=== PATIENT | male | born 1985 | race Caucasian/White ===

== ENCOUNTER 2019-02-08 12:41 | Inpatient (IN) | payer MEDICAID ==
[~2019-02-08] VITALS: Ht 190.5 cm; Wt 75.0 kg
[2019-02-08 12:48] VITALS: Ht 190.5 cm; Wt 75.0 kg
--- NOTE | 2019-02-08 12:54 | NUR ---
AMBULATED TO RESTROOM TO GIVE URINE SAMPLE.
--- NOTE | 2019-02-08 13:03 | NUR ---
GIVEN WATER, UNABLE TO OBTAIN URINE SAMPLE.
--- NOTE | 2019-02-08 13:13 | NUR ---
PT UNABLE TO URINATE, TO LOBBY VIA WC WITH FAMILY, AWAITING ED BED. PT AWAKE AND ALERT BUT PER FAMILY NOT RESPONDING APPROPRIATELY. PT ANSWERS QUESTIONS BUT "APPEARS OUT OF IT" PER FAMILY. PT DENIES DRUG USE OR ETOH. NO FACIAL DROOP NOTED.
--- NOTE | 2019-02-08 13:35 | NUR ---
PT PRESENTS TO THE ED TODAY WITH C/C OF ALOC. PER FAMILY, PT HAS HAD A RECENT "COLD" X1 WEEK AND PT DID NOT SHOW UP TO WORK. COUSIN FOUND PT "ALTERED" AT HOME, AND DECIDED TO BRING HIM HERE FOR EVALUATION. PT IS AAOX4 ANSWERING ALL QUESTIONS APPROPRIATELY, HOWEVER IS SLOW TO ANSWER. PT'S ONLY COMPLAINT IS FRONTAL HEADACHE PAIN. NEURO INTACT, BILATERAL AND EQUAL SENIOR BIOSTATISTICIAN/GROUP LEADER NOTED, MOVES ALL EXTREMITIES APPROPRIATELY, AND ABLE TO AMBULATE WITH STEADY GAIT. PT IS AWAKE AND ALERT, RESP E/U, NAD NOTED. COUSIN AT BEDSIDE TO HELP PT TRANSLATE. NAD NOTED. AWAITING MSE.
--- NOTE | 2019-02-08 13:59 | NUR ---
IV BOLUS INITIATED PER ORDER, PT VERBALIZED UNDERSTANDING OF MEDICATION PRIOR TO ADMINISTRATION.
--- NOTE | 2019-02-08 14:07 | NUR ---
PT GIVEN URINAL, AWARE OF NEED FOR URINE SAMPLE.
[2019-02-08 14:15] LABS: BASOPHIL % 0.2 % (0-2); PLATELET COUNT 150 x10^3mcL (130-400); RED CELL DISTRIBUTION WIDTH 12.7 % (11.5-14.5)
[2019-02-08 14:26] LABS: CALCIUM 9.4 mg/dL (8.5-10.1); CARBON DIOXIDE 28.5 mmol/L (21-32); CHLORIDE SERUM 88 mmol/L (98-107); CREATININE SERUM 0.9 mg/dL (0.7-1.3); GFR1 > 60 mL/min; GLUCOSE SERUM 145 mg/dL (74-106); POTASSIUM SERUM 3.3 mmol/L (3.5-5.1); SODIUM SERUM 127 mmol/L (136-145)
[2019-02-08 14:31] LABS: ALBUMIN 3.7 g/dL (3.4-5.0); ALKALINE PHOSPHATASE 146 U/L (46-116); ALT/SGPT 90 U/L (16-63); AST/SGOT 16 U/L (15-37); BILIRUBIN TOTAL 0.8 mg/dL (0.20-1.00); HDL CHOLESTEROL 45 mg/dL (40-60)
--- NOTE | 2019-02-08 14:32 | NUR ---
PT INSISTED ON AMBULATING TO ED RESTROOM. ACCOMPANIED BY COUSIN. AMBULATED WITH STEADY GAIT.
[2019-02-08 14:33] LABS: CHOLESTEROL 81 mg/dL (<200); TOTAL PROTEIN, SERUM 8.3 g/dL (6.4-8.2)
--- NOTE | 2019-02-08 14:41 | NUR ---
PT RETURNED TO ED BED 1, REPORTS THAT HE IS UNABLE TO PROVIDE URINE SAMPLE. NO INCIDENT NOTED. PLACED BACK ON CM AND PULSE OXIMTERY FOR MONITORING.
--- NOTE | 2019-02-08 15:17 | NUR ---
DR TAVARES AT BEDSIDE TO SPEAK WITH PT REGARDING NEED FOR PROCEDURE. RN SIMONE CROW AT BEDSIDE TO HELP TRANSLATE. PT'S AUNT, RICHELLE, SIGN CONSENT FOR LUMBAR PUNCTURE AND CONSCIOUS MODERATE SEDATION. PT AGREED WITH PLAN OF CARE.
--- NOTE | 2019-02-08 15:49 | NUR ---
RT AT BEDSIDE TO HELP WITH MODRATE SEDATION PROTOCOL. DR TAVARES AT BED SIDE. PRIMARY NURSE SIMONE HUA ADMINISTERED THE KETAMINE PER DR TAVARES ORDERS. LP IN PROGRESS BY DR TAVARES, PT AWAKE RESP EVEN AND UNLABORED ON CM. MODERATE SEDATION IN PROGRESS, SEE NOTES.
--- NOTE | 2019-02-08 15:50 | NUR ---
MODERATE SEDATION AND LUMBAR PUNCTURE STARTED. PLEASE SEE MODERATE SEDATION RECORD SHEET.
--- NOTE | 2019-02-08 16:00 | NUR ---
PROCEDURE COMPLETED. PER DR TAVARES, HAVE PT LIE SUPINE IN [facility]. PT IS AWAKE AND ALERT, RESPONDING TO QUESTIONS APPROPRIATELY. WILL CONTINUE TO MONITOR.
--- NOTE | 2019-02-08 16:07 | NUR ---
ORAL TEMP 102.9. DR TAVARES MADE AWARE.
--- NOTE | 2019-02-08 16:20 | NUR ---
PT REMAINS IN SUPINE POSITION. PT IS ALERT AND ORIENTED X4, ABLE TO TRACK APPROPRIATELY AND FOLLOWS COMMANDS APPROPRIATELY. PT CONTINUES TO BE SLIGHTLY SLOW TO ANSWER WHEN HE FIRST PRESENTED TO THE ED.
--- NOTE | 2019-02-08 16:27 | NUR ---
PT REQUESTING TO USE URINAL. PER DR TAVARES, OKAY FOR PT TO ROLL OVER ON SIDE URINATE AND THEN RETURN TO SUPINE.
[2019-02-08 16:34] LABS: microscopic required? NO
[2019-02-08 16:43] LABS: UA SPECIFIC GRAVITY <=1.005 (1.005-1.035); urine erythrocyte NEGATIVE (NEGATIVE)
--- NOTE | 2019-02-08 16:44 | NUR ---
PT MEDICATED PER VERBAL ORDER FROM DR TAVARES WITH 1 GRAM TYLENOL PO. PT BRIEFLY SAT UP TO TAKE PO TYLENOL, AND LAID BACK DOWN. PT TOLERATED. AUNT AND COUSIN AT BEDSIDE WITH PT.
[2019-02-08 16:47] LABS: TOTAL PROTEIN CSF 96.9 mg/dL (15-45)
[2019-02-08 16:52] LABS: AMPHETAMINE QUAL UR NONE DETECTED (See below)
[2019-02-08 16:57] LABS: COLOR CSF COLORLESS
[2019-02-08 16:58] LABS: APPEARANCE CSF CLEAR
[2019-02-08 17:01] LABS: RBC CSF 12 /cumm (0); WBC CSF 93 /cumm (0-5)
[2019-02-08 17:02] LABS: APPEARANCE CSF CLEAR; COLOR CSF COLORLESS; RBC CSF 10 /cumm (0); WBC CSF 110 /cumm (0-5)
--- NOTE | 2019-02-08 17:10 | NUR ---
DR TAVARES AT BEDSIDE SPEAKING WITH PT'S FAMILY REGARDING PLAN OF CARE.
[2019-02-08 17:15] LABS: LYMPHOCYTE CSF 82 % (40-80); LYMPHOCYTE CSF 94 % (40-80); MONOCYTE CSF 6 %; MONOCYTE CSF 7 %
--- NOTE | 2019-02-08 17:22 | NUR ---
PER DR TAVARES, START ROCEPHIN 1ST, THEN VANCO, AND 3RD ACYCLOVIR.
--- NOTE | 2019-02-08 17:28 | NUR ---
IV ROCEPHIN INITIATED PER ORDER, PT AND FAMILY VERBALIZED UNDERSTANDING. DR TAVARES MADE AWARE OF NEW TEMP RECHECK. PER DR TAVARES, GIVE 600 MG IBUPROFEN.
--- NOTE | 2019-02-08 18:09 | NUR ---
VABNCOMYCIN BNOW INFUSING PER ORDERS VIA IV PUMP. PT IS A/AX4 SPEAKING TO MEDICAL STUDENT.PT ON CM
--- NOTE | 2019-02-08 18:21 | NUR ---
I EXPLAINED TO FAMIL MEMBERS REGARDING THE ISOLATION AND OFFERED MASKS HOWEVER I ALSO EXPLAINED LIMITED VISITING DUE TO DX OF MENIGITIS.
--- NOTE | 2019-02-08 18:22 | NUR ---
MEDICAL STUDENT LEFT ROOM I AM IN ROOM WITH PT ASSISTING WITH URINAL.
--- NOTE | 2019-02-08 18:24 | NUR ---
PT TOLERATING VANCOMYCIN WELL NO ADVERSE REACTIONS NOTED. SIDERAILS U0P FOR SAFETY
--- NOTE | 2019-02-08 19:11 | NUR ---
PT REPORT RECEIVED FROM SIMONE BUITRAGO TO ASSUME PT CARE. PT RESTING IN A POSITION OF COMFORT, AOX4, RESP EVEN AND UNLABORED, NO ACUTE DISTRESS NOTED. PT VITAL SIGNS STABLE AT THIS TIME. PT REMAINS ON FULL CM.
--- NOTE | 2019-02-08 19:40 | NUR ---
REPORT CALLED TO MINNA ALARCON TO ASSUME CARE FOR PT.
--- NOTE | 2019-02-08 20:10 | NUR ---
PT TRANSFERRED TO 250B BY [facility] BY PEARL RODRÍGUEZ. PT ACCEPTED BY MARGRET BUITRAGO TO ASSUME PT CARE. PT AOX4, RESP EVEN AND UNLABORED, NO ACUTE DISTRESS NOTED. PT TRANSFERRED FROM [facility] TO BED WITHOUT INCIDENT.
[2019-02-08 20:27] VITALS: BP 136/71
--- NOTE | 2019-02-08 20:38 | NUR ---
RECEIVED FROM ER, TRANSPORTED VIA [facility]. AWAKE, SLOW TO ANSWER, GENERALIZED WEAKNESS. ABLE TO STATE NAME, WHERE HE LIVES, . HAS DIFFICULTY STATING WHERE HE IS OR CURRENT YEAR. HOB ELEVATED 30 DEG. BREATHING EVEN AND UNLABORED ON ROOM AIR. LUNG SOUNDS CLEAR. DENIES HAVING HEADACHE AT THIS TIME. IVF OF NS FROM ER, REGULATED AT 20ML/HR AT THIS TIME. IV ACYCLOVIR INFUSING AT 110ML/HR, ABOUT 90ML, LEFT IN BAG FROM ER. ON DROPLET ISOLATION. ACCOMPANIED BY FEMALE VISITOR WHO PT IDENTIFIES HIS . WEARING MASK. ORIENTED PT TO ROOM ENVIRONMENT, INSTRUCTED ON USE OF CALL LIGHT TO CALL FOR ASSISTANCE, PLACED WITHIN EASY REACH. SITTER IN ROOM. ENDORSED TO NURSE OSWALD.
--- NOTE | 2019-02-08 22:09 | NUR ---
PT RESTING QUIETLY IN BED. DENIES PAIN OR ANY DISCOMFORT AT THIS TIME. STARTED ON IVF, NS AT 70ML/HR, INFUSING LT AC, SITE CLEAR. FAMILY MEMBERS AT THE BEDSIDE . WILL CONTINUE TO MONITOR.
--- NOTE | 2019-02-08 22:12 | NUR ---
K-RIDER INFUSING ORDERED. WILL CONTINUE TO MONITOR.
--- NOTE | 2019-02-09 02:01 | NUR ---
SEEN BY DR KOHLER. NEW ORDERS RECEIVED. NO COMPLAINTS NOTED AT THIS TIME.. FAMILY AT THE BEDSIDE. WILL CONTINUE TO MONITOR.
--- NOTE | 2019-02-09 03:31 | NUR ---
COMPLAINED OF SEVERE HEADACHE AND BODY PAIN, /, MEDICATED WITH TORADOL IV ORDERED. WILL CONTINUE TO MONITOR.
--- NOTE | 2019-02-09 03:33 | NUR ---
VITAL SIGNS CHECKED, TEMP. SHOWS 103.2, COOLING MEASURES APPLIED. TYLENOL 650MG PO GIVEN. WILL CONTINUE TO MONITOR.
--- NOTE | 2019-02-09 05:04 | NUR ---
TEMP. SHOWS 101.6 AT THIS TIME. WILL CONTINUE TO MONITOR.
[2019-02-09 05:14] VITALS: BP 122/86
--- NOTE | 2019-02-09 06:35 | NUR ---
NO COMPLAINTS NOTED AT THIS TIME. EYES CLOSED, APPEARS ASLEEP, EASILY AROUSABLE. RESP. EVEN AND UNLABORED. NO ACUTE DISTRESS NOTED. IVF INTACT AND INFUSING WELL, SITE CLEAR. SITTER AT THE BEDSIDE FOR SAFETY. WILL ENDORSE TO INCOMING NURSE.
[2019-02-09 06:43] LABS: BASOPHIL % 0.3 % (0-2); PLATELET COUNT 179 x10^3mcL (130-400); RED CELL DISTRIBUTION WIDTH 13.1 % (11.5-14.5)
[2019-02-09 06:53] LABS: CARBON DIOXIDE 26.4 mmol/L (21-32); CHLORIDE SERUM 95 mmol/L (98-107); CREATININE SERUM 0.9 mg/dL (0.7-1.3); GFR1 > 60 mL/min; GLUCOSE SERUM 138 mg/dL (74-106); PHOSPHOROUS 2.6 mg/dL (2.5-4.9); POTASSIUM SERUM 3.3 mmol/L (3.5-5.1); SODIUM SERUM 137 mmol/L (136-145)
--- NOTE | 2019-02-09 07:35 | NUR ---
ASSUMED CARE OF PATIENT. SEEN RESTING IN BED WITH EQUAL AND UNLABORED RESPIRATIONS. AT BEDSIDE. NO APPARENT DISTRESS NOTED. IV ON LAC PATENT, INCREASED NS TO 125ML/HR PER ORDERS. WILL CONTINUE TO MONITOR.
--- NOTE | 2019-02-09 08:10 | NUR ---
XRAY TO PHLEBOTOMY SERVICES TECHNICIAN PATIENT. NOTIFIED PATIENT. ONLY RESPONDING WITH "MANDE." NOTIFIED AT BEDSIDE.
--- NOTE | 2019-02-09 09:23 | NUR ---
NO CSF ORDERS. PAGED.
--- NOTE | 2019-02-09 09:38 | NUR ---
RECIEVED REPORT FROM NIGHT NURSE THAT REPEAT CSF WAS NEEDED TO BE DONE DUE TO INSUFFICEINT SAMPLE SIZE TO RULE OUT VIRAL MENINGITIS. LAB CALLING FOR NEW ORDERS FOR CSF. PAGED BUT NO RESPONSE. PER LAB, CSF TO BE HELD FOR NOW, HOWEVER, ORDERS FROM YESTERDAY STILL CURRENTLY PENDING. AWAITING CALL BACK FROM FOR CLARIFICATION.
--- NOTE | 2019-02-09 09:59 | NUR ---
PER LAB, ALL ORDERS PENDING. NO NOTES REGARDING NEED TO RECOLLECT SPECIMEN.
--- NOTE | 2019-02-09 10:01 | NUR ---
PAINT LABORATORY TECHNICIAN REPORTING ELEVATED TEMPERATURE. UNABLE TO GIVEN TYLENOL OR TRAMADOL PER EMAR. COOLING MEASURES APPLIED. PATIENT APPEARS AGITATED AND IS NON-COOPERATIVE WITH ADL CARE. PULLS AT GOWN AND REMOVES ICE PACKS.
[2019-02-09 10:05] VITALS: BP 134/74
--- NOTE | 2019-02-09 10:33 | NUR ---
BLADDER SCAN SHOWS >900ML URINE RETENTION. ORDER FOR QUILES CATHTER. TO DISCUSS WITH LAB OVER CSF.
--- NOTE | 2019-02-09 10:51 | NUR ---
QUILES CATHTER PLACED.
--- NOTE | 2019-02-09 11:18 | NUR ---
PRN TYLENOL PROVIDED FOR TEMP OF 103. COOLING MEASURES STILL IN PLACE. PRN TORADOL ALSO PROVIDED. PATIENT WAS ABLE TO TAKE A FEW BITES OF FOOD WITHOUT ANY ISSUE.
--- NOTE | 2019-02-09 11:35 | NUR ---
URINE SAMPLE SENT TO LAB
--- NOTE | 2019-02-09 12:35 | NUR ---
PATIENT CONTINUES TO GRAB AT PENIS AND SCRATCHING. PENIS AND QUILES CLEANED. QUILES PATENT AND DRAINING FREDI URINE. PATIENT ABLE TO EAT LUNCH WITH MAXIMUM ASSISTANCE.
--- NOTE | 2019-02-09 15:21 | NUR ---
PATIENT MORE RESPONSIVE. WAS ABLE TO ANSWER QUESTIONS. FAMILY REMAINS AT BEDSIDE. COMPLAINING OF 2/10 HEADACHE.
--- NOTE | 2019-02-09 15:53 | NUR ---
PATIENT CONTINUING TO C/O OF HEADACHE, DR.ALSAYED PLASCENCIAD. NO OTHER PRN MEDICATIONS AVAILABLE.
--- NOTE | 2019-02-09 16:42 | NUR ---
PRN MOTRIN PROVIDED FOR 6/10 HEADACHE.
--- NOTE | 2019-02-09 17:17 | NUR ---
PATIENT COMPLAINING OF "FEELING HOT." TEMPERATURE 100.0. CONTINUING WITH COOLING MEASURES. NO APPARENT DISTRESS IS NOTED.
[2019-02-09 17:40] VITALS: BP 122/72
--- NOTE | 2019-02-09 18:50 | NUR ---
PATIENT SEEN IN BED MORE ALERT THAN THIS MORNING. ABLE TO RESPOND TO QUESTIONS. FAMILY AT BEDSIDE. IV TO LAC PATENT AND INUFSING NS AT 125 ML/HR.CONTINUING WITH COOLING MEASURES. WILL ENDORSE CARE TO ONCOMING RN.
--- NOTE | 2019-02-09 19:47 | NUR ---
ISOL PREC POSTED, PT AWAKE VERBAL IN SHORT PHRASES, DOESNT FOLLOW REGULAR CONVERSATION, DENIES PAIN, NO DISTRESS LUNGS CTA, ON RA SATURATING 97%, AFEBRILE TEMP 98.9, IVF NS INFUSING @ 125CC/HR IV ACCESS @ LAC PATENT NON INFIL, MARKED WEAKNESS, EQUAL HANDGRIPS, ON ACYCLOVIR IV NO ADV REACTION, SHIFT ASSESSMENT DONE, FAMILY AT BEDSIDE FOR VISIT, CONT TO MONITOR.
--- NOTE | 2019-02-09 22:05 | NUR ---
PT C/O HEADACHE 03/06 PER ASSESSMENT, TYLENOL 650 MG PO GIVEN PER PRN ORDER, CONT TO MONITOR.
[2019-02-09 22:13] VITALS: BP 113/65
[2019-02-10 05:18] VITALS: BP 128/71
--- NOTE | 2019-02-10 06:31 | NUR ---
PT HAS A TEMP OF 102.7 PROVIDED COOLING MEASURES, ALSO C/O HEADACHE, IBUPROPEN 1 TAB PO GIVEN PER PRN ORDER, AT BEDSIDE, PT MORE ALERT AND CONVERSANT ABLE TO FOLLOW SOME COMMANDS, IVF INFUSING WELL, AM LABS DONE CONT TO MONITOR AND PROCEED TO CURRENT PLAN OF CARE.
[2019-02-10 07:04] LABS: BASOPHIL % 0.2 % (0-2); PLATELET COUNT 161 x10^3mcL (130-400); RED CELL DISTRIBUTION WIDTH 13.4 % (11.5-14.5)
[2019-02-10 07:22] LABS: CARBON DIOXIDE 26.4 mmol/L (21-32); CHLORIDE SERUM 102 mmol/L (98-107); CREATININE SERUM 0.8 mg/dL (0.7-1.3); GFR1 > 60 mL/min; GLUCOSE SERUM 111 mg/dL (74-106); PHOSPHOROUS 2.6 mg/dL (2.5-4.9); POTASSIUM SERUM 3.6 mmol/L (3.5-5.1); SODIUM SERUM 137 mmol/L (136-145)
--- NOTE | 2019-02-10 07:27 | NUR ---
ASSUMED CARE OF PATIENT. SEEN AWAKE AND ALERT THIS MORNING. ABLE TO RESPOND TO QUESTIONS, NODS UP AND DOWN WHEN ASKED IF FEELING OKAY. IV ON LAC PATENT AND INUFSING NS AT 125 ML/HR. QUILES PATENT, DRAINING FREDI URINE. FAMILY REMAINS AT BEDSIDE.
[2019-02-10 08:16] VITALS: BP 119/70
--- NOTE | 2019-02-10 08:45 | NUR ---
PATIENT SITTING UP IN BED. TOLERATING MEAL. ABLE TO RESPOND TO VERBAL QUESTIONS. FAMILY REMAINING AT BEDSIDE.
--- NOTE | 2019-02-10 10:08 | NUR ---
PATIENT RESTING IN ROOM WITH NO COMPLAINTS OF PAIN OR DISCOMFORT. ABLE TO VERBALIZE NEEDS AND MAKE NEEDS KNOWN. FAMILY AT BEDSIDE. PATIENT APPEARS TO BE MORE ALERT TODAY. NO NEW ISSUES.
--- NOTE | 2019-02-10 12:44 | NUR ---
TEMPERATURE OF 103. PRN TYLENOL PROVIDED. TEMPERATURE NOW 101.3. COOLING MEASURES CONTINUED.
--- NOTE | 2019-02-10 13:07 | NUR ---
PATIENT COMPLAINING OF 9/10 HEADCAHE. PRN MOTRIN PROVIDED.
--- NOTE | 2019-02-10 13:59 | NUR ---
QUILES CARE PROVIDED.
--- NOTE | 2019-02-10 14:29 | NUR ---
TEMPERATURE 99-100. REMIANING ON COOLING MEASURES. ADMITS TO MILD HEADACHE OF 4/10 QUALITY. NO APPARENT DISTRESS NOTED. FAMILY REMAINS AT BEDSIDE.
--- NOTE | 2019-02-10 15:32 | NUR ---
PATIENT REPORTS "FEELING BETTER." TEMPERATURE REMAINING AT 99. NO APPARENT DISTRESS NOTED. COOLING MEASURES STILL IN PLACE. FAMILY REMAINS AT BEDSIDE.
--- NOTE | 2019-02-10 16:43 | NUR ---
DR. BOATENG NOTIFIED PATIENT AND OF CURRENT PROGNOSIS.
[2019-02-10 17:22] VITALS: BP 113/63
--- NOTE | 2019-02-10 18:09 | NUR ---
QUILES CATHTER NOW DRAINING CLEAR YELLOW URINE FROM PREVIOUS FREDI URINE.
--- NOTE | 2019-02-10 18:54 | NUR ---
PATIENT SEEN RESTING IN ROOM WITH NO COMPLAINTS OF PAIN OR DISCOMFORT. NO APPARENT DISTRESS NOTED. IV PATENT AND CONTINUING TO INFUSING NS AT 125ML/HR. QUILES INTACT AND PATENT, DRAINING YELLOW URINE. WILL ENDORSE CARE TO ONCOMING RN.
--- NOTE | 2019-02-10 19:32 | NUR ---
RECEIVED PT IN BED AAO X4 VERBALIZED NEEDS, NOT IN DISTRESS DENIES PAIN OR DISCOMFORTS AFEBRILE TEMP 98.9, IVF NS INFUSING @ 125CC/HR, IV ACCESS PATENT NON INFIL, SCD'S FOR DVT PROPHYLAXIS, F/C DRAINING FREELY YELLOW COLORED URINE OUTPUT, SHIFT ASSESSMENT DONE, CALL LIGHT AT REACH, RECEIVED LAB REPORT PT HAVING YEAST ORGANISM IN THE CSF, PAGED DR MEHTA, AWAITING FOR CALL BACK.
--- NOTE | 2019-02-10 19:55 | NUR ---
DR MEHTA CALLED BACK INFORMED RE FINAL RESULT FOR CSF CULTURE IN WHICH PT HAS YEAST GROWTH, AWAITING FOR ORDERS.
[2019-02-10 21:00] VITALS: BP 137/79
--- NOTE | 2019-02-10 22:12 | NUR ---
TYLENOL 650 MG PO GIVEN FOR TEMP 102.7, COOLING MEASURES PROVIDED, CONT TO MONITOR.
--- NOTE | 2019-02-10 22:30 | NUR ---
TEMP RECHECKED 99.2, PT ASLEEP IVF INFUSING WELL, CHECKED AT INTERVALS.
--- NOTE | 2019-02-10 23:34 | NUR ---
FOLLOWED UP PHARMACIST RE AMPHOTERICIN AND FLUCYTOSINE MEDICATION STILL NOT VERIFIED, PER PHARMACIST DAY PHARMACY WILL VERIFY DOSING IN AM, DR MEHTA MADE AWARE, WILL ENDORSE TO AM NURSE.
[2019-02-11] VITALS (10 sets, daily range): BP systolic 111–142; BP diastolic 60–92
--- NOTE | 2019-02-11 06:08 | NUR ---
PT C/O LONDONO 12/04 PER ASSESSMENT, ALSO HAS ELEVATED TEMP OF 100.6, COOLING MEASURES PROVIDED, MOTRIN 600 MG PO GIVEN PER PRN ORDER, ENCOURAGED FLUIDS INTAKE, AT BEDSIDE STAYED FOR THE NIGHT ACTIVELY PARTICIPATING CARE, PT MORE AWAKE AND COHERENT, VERBALIZED NEEDS, WILL ENDORSE TO INCOMING SHIFT FOR F/U CARE.
[2019-02-11 06:50] LABS: CALCIUM 7.4 mg/dL (8.5-10.1); CARBON DIOXIDE 25.7 mmol/L (21-32); CHLORIDE SERUM 100 mmol/L (98-107); CREATININE SERUM 0.9 mg/dL (0.7-1.3); GFR1 > 60 mL/min; GLUCOSE SERUM 109 mg/dL (74-106); MAGNESIUM 1.8 mg/dL (1.8-2.4); PHOSPHOROUS 2.7 mg/dL (2.5-4.9); POTASSIUM SERUM 3.3 mmol/L (3.5-5.1); SODIUM SERUM 136 mmol/L (136-145)
--- NOTE | 2019-02-11 07:21 | NUR ---
ASSUMED CARE OF PATIENT. SEEN RESTING THIS MORNING WITH EQUAL AND UNLABORED RESPIRATIONS. NO APPARENT DISTRESS NOTED. IV TO LAC PATENT AND INFUSING NS AT 125ML/HR. QUILES INTACT AND PATENT, DRAINING YELLOW URINE. AT BEDSIDE. WILL CONTINUE TO MONITOR.
[2019-02-11 07:34] LABS: BASOPHIL % 0.2 % (0-2); PLATELET COUNT 159 x10^3mcL (130-400); RED CELL DISTRIBUTION WIDTH 13.1 % (11.5-14.5)
--- NOTE | 2019-02-11 08:49 | NUR ---
AND PATIENT REQUESTING THAT PATIENT INFORMATION BE KEPT CONFIDENTIAL FROM FAMILY MEMBERS.
--- NOTE | 2019-02-11 09:04 | NUR ---
PATIENT RESTING IN BED WITH NO COMPLAINTS OF PAIN OR DISCOMFORT. NO APPARENT DISTRESS NOTED. AT BEDSIDE. PER PHARMACY, RECOMMENDED DOSE FOR AMPHOTERICIN B AT MINIMUM IS 50MG.
--- NOTE | 2019-02-11 10:57 | NUR ---
PER PHARMACY, FLUCYTOSINE NON-FORMULARY, AMPHOTERICIN B ORDER CLARIFIED.
--- NOTE | 2019-02-11 13:00 | NUR ---
BLADDER TRAINING INITIATED
--- NOTE | 2019-02-11 13:24 | NUR ---
PATIENT EDUCATED ON AMPHOTERICIN B. PRN TYLNOL PROVIDED FOR L[place]ONO AND TEMP OF 99.
--- NOTE | 2019-02-11 13:30 | NUR ---
PER PHARMACY, VITAL SIGNS TO BE OBTAINED EVERY 30 MINUTES FOR THE NEXT 3-4 HOURS TO ASSESS FOR REACTIONS. SEE DOCUMENTATION.
--- NOTE | 2019-02-11 14:02 | NUR ---
PAGED FOR LOW POTASSIUM AND POSSIBLE COVERAGE, AWAITING ORDERS.
--- NOTE | 2019-02-11 14:14 | NUR ---
PATIENT REQUESTING TO AMBULATE. PATIENT FIRST MOVED TO CHAIR TO ASSESS AMBULATION. PATIENT BECAME LIGHT HEADED AND UNSTEADY WHEN STANDING UP FROM BED. REQUIRED A FEW SECONDS TO BECOME STEADY, WAS ABLE TO TRANSFER TO CHAIR WITH 1 PERSON ASSIST.
--- NOTE | 2019-02-11 14:38 | NUR ---
PER Paulino ORTIZ NOT TO BE COVERED DUE TO AMPHOTERICIN B. PATIENT COMPLAINING OF FEELING HOT, TYLENOL ALREADY ADMINISTERED. COOLING MEASURES APPLIED.
--- NOTE | 2019-02-11 17:20 | NUR ---
NO ADVERSE EFFECT FROM TEST AMPHOTERICIN B, VITAL SIGNS WERE AT BASELINE. INITIAL DOSE STARTED.
--- NOTE | 2019-02-11 18:09 | NUR ---
CONTINUING WITH BLADDER TRAINING, PATIENT UNABLE TO SENSE THE URGE TO URINATE.
--- NOTE | 2019-02-11 18:57 | NUR ---
PATIENT RESTING IN CHAIR WITH TEMP OF 103. COOLING MEASURES KEPT IN PLACE. NO COMPLAINTS OF PAIN OR DISCOMFORT. NO APAPRENT DISTRESS NOTED. CONTINUING WITH AMPHOTERICIN B AT THIS TIME. WILL ENDORSE CARE TO ONCOMING RN.
--- NOTE | 2019-02-11 19:10 | NUR ---
RECEIVED PT FROM DAY SHIFT RN. PT IS ALERT AND ORIENTED X4 CURRENTLY RESTING IN A CHAIR. FAMILY AT THE BEDSIDE. PT DENIES SOB OR CHEST PAIN ON ROOM AIR. BREATHING IS EVEN AND UNLABORED. PT IS MOSTLY SLOV[place] SPEAKING. ABLE TO MAKE NEEDS KNOWN. PT DENIES DIZZINESS, HEADACHE, MEMORY INTACT AT THIS TIME. LAC IV NOTED RUNNING NS @125ML/HR. PT TOLERATING WELL. QUILES CATHETER IN PLACE. WILL CONTINUE WITH BLADDER TRAINING. PT STATES THAT HE HAS THE URGE TO PEE. DARK YELLOW URINE. PT TOLERATING WELL. SAFETY MEASURES ARE IN PLACE. BED IS IN THE LOWEST POSITION. CALL LIGHT IS WITHIN REACH. WILL CONTINUE TO MONITOR PT.
--- NOTE | 2019-02-11 20:50 | NUR ---
PT TEMP: 102.4 WILL ADMINISTER TYLENOL PER ORDER. ICE PACKS ADMINISTERED. WILL REASSESS.
--- NOTE | 2019-02-12 00:27 | NUR ---
SISTER AT BEDSIDE. PT RESTING IN BED EMPTIED 2000 ML FROM QUILES. PT BREATHING EVEN AND UNLABORED. WILL CONTINUE TO MONITOR. PT DOES NOT APPEAR TO BE IN ANY DISTRESS AT THIS TIME.
[2019-02-12 05:38] VITALS: BP 115/63
--- NOTE | 2019-02-12 07:10 | NUR ---
RECEIVED PT FROM DAYO RN. PT LAYING IN BED RESTING WITH BOTH EYES CLOSED. NO S/S OF ACUTE DISTRESS. NO SOB ON ROOM AIR. NO S/S OF PAIN. CALM/COOPERATIVE. SISTER AT BEDSIDE. DROPLET PRECAUTIONS IN PLACE. BED IN LOW POSITION. CALL LIGHT WITHIN REACH. WILL CONTINUE TO MONITOR.
--- NOTE | 2019-02-12 08:29 | NUR ---
TEMP 100.4F, TYLENOL GIVEN. COOLING MEASURES IN PLACE. DENIES CHILLS. NO S/S OF ACUTE DISTRESS. NO COMPLAINT OF PAIN. NO N/V. PT CALM/COOPERATIVE. BED IN LOW POSITION. CALL LIGHT WITHIN REACH. DROPLET PREC IN PLACE. WILL CONTINUE TO MONITOR.
[2019-02-12 08:40] VITALS: BP 108/62
[2019-02-12 09:06] LABS: BASOPHIL % 0.3 % (0-2); PLATELET COUNT 172 x10^3mcL (130-400); RED CELL DISTRIBUTION WIDTH 12.8 % (11.5-14.5)
[2019-02-12 09:13] LABS: ALKALINE PHOSPHATASE 97 U/L (46-116); ALT/SGPT 51 U/L (16-63); AST/SGOT 18 U/L (15-37); BILIRUBIN TOTAL 0.51 mg/dL (0.20-1.00); CALCIUM 7.6 mg/dL (8.5-10.1); CARBON DIOXIDE 26.9 mmol/L (21-32); CHLORIDE SERUM 102 mmol/L (98-107); CREATININE SERUM 0.8 mg/dL (0.7-1.3); GFR1 > 60 mL/min; GLUCOSE SERUM 121 mg/dL (74-106); SODIUM SERUM 138 mmol/L (136-145); TOTAL PROTEIN, SERUM 6.4 g/dL (6.4-8.2)
[2019-02-12 09:28] LABS: ALBUMIN 2.7 g/dL (3.4-5.0)
--- NOTE | 2019-02-12 11:55 | NUR ---
QUILES REMOVED PER PHYSICIAN ORDER. OUTPUT 650CC YELLOW/CLEAR. TOLERATED WELL. INSTRUCTED TO USE URINAL TO VOID. VERBALIZED UNDERSTANDING. AA/OX4. NO S/S OF ACUTE DISTRESS. NO SOB ON ROOM AIR. NO PAIN. WILL CONTINUE TO MONITOR.
--- NOTE | 2019-02-12 12:24 | NUR ---
PT TAKEN FOR PROCEDURE. AA/OX4. NO S/S OF ACUTE DISTRESS. IV WNL TO LAC, SALINE LOCKED. NO SOB ON ROOM AIR. DENIES PAIN. CALM/COOPERATIVE. AT BEDSIDE.
--- NOTE | 2019-02-12 13:23 | NUR ---
PT BACK FROM PROCEDURE. VS STABLE BP 121/72, HR 78, O2 SAT 98% ON ROOM AIR, RR EVEN/UNLABORED. RR 14, TEMP 97.4F. DENIES CHILLS. NO [place]ONO. NO DIZZINESS. NO SOB. DENIES PAIN. CALM/COOPERATIVE. IV WNL, NO REDNESS, NO SWELLING, NO INFILTRATION. AT BEDSIDE. PT AA/OX4. BED IN LOW POSITION. CALL LIGHT WITHIN REACH. WILL CONTINUE TO MONITOR.
[2019-02-12 13:30] VITALS: BP 127/72
[2019-02-12 16:50] VITALS: BP 125/77
--- NOTE | 2019-02-12 18:21 | NUR ---
PT LAYING IN BED. AA/OX4. DENIES PAIN. NO SOB ON ROOM AIR. NO N/V. NO FEVER AT THIS TIME. DENIES CHILLS. NO CHEST PAIN. IV WNL TO LAC, IV FLUIDS FLOWING. SEE EMAR. IV SITE WNL. VISITOR AT BEDSIDE. PT CALM/COOPERATIVE. BED IN LOW POSITION. CALL LIGHT WITHIN REACH. WILL ENDORSE TO ONCOMING SHIFT.
--- NOTE | 2019-02-12 19:24 | NUR ---
TEMP 101.7 ORAL. TYLENOL GIVEN. COOLING MEASURES IN PLACE. CHILLS NOTED. WILL ENDORSE TO DAYO BUITRAGO.
--- NOTE | 2019-02-12 20:00 | NUR ---
RECEIVED PT IN BED. RESTING QUIETLY IN BED, WITH FAMILY MEMBERS AT THE BEDSIDE. ALERT AND ORIENTED. ABLE TO VERBALIZE NEEDS. RESP. EVEN AND UNLABORED. LUNG SOUNDS CLEAR BILAT. ON ROOM AIR, NO ACUTE DISTRESS NOTED.TEMP. RECHECK SHOWS 101.2, COOLING MEASURES APPLIED. DENIES HEADACHE/DIZZINESS.DENIES ANY DISCOMFORT AT THIS TIME.IVF, NS AT 125ML/HR, INTACT AND INFUSING VIA LAC, SITE CLEAR. VOIDING FREELY VIA URINAL. CALL LIGHT WITHIN REACH. WILL CONTINUE TO MONITOR.
[2019-02-12 20:31] VITALS: BP 116/67
--- NOTE | 2019-02-12 22:06 | NUR ---
COMPLAINED OF GEN. BODY PAIN, 5/10, TEMP. RECHECK ALSO SHOWS 101.0, MOTRIN PO GIVEN ORDERED. WILL CONTINUE TO MONITOR.
--- NOTE | 2019-02-12 23:58 | NUR ---
AMBULATED IN THE HALLWAY WITH , ROBB. WELL. RESTING QUIETLY IN BED AT THIS TIME. AT THE BEDSIDE. DENIES ANY PAIN OR DISCOMFORT. TEMP. SHOWS 99.2. WILL CONTINUE TO MONITOR.
--- NOTE | 2019-02-13 03:00 | NUR ---
RESTING QUIETLY IN BED, WITH EYES CLOSED, APPEARS ASLEEP, EASILY AROUSABLE. RESP. EVEN AND UNLABORED.ON ROOM AIR, NO ACUTE DISTRESS NOTED. IVF INTACT AND INFUSING WELL, SITE CLEAR. WILL CONTINUE TO MONITOR.
[2019-02-13 05:21] VITALS: BP 103/56
--- NOTE | 2019-02-13 06:28 | NUR ---
SLEPT WELL. AT THE BEDSIDE. NO COMPLAINTS NOTED AT THIS TIME. AFEBRILE, TEMP. 98.3 AT THIS TIME.VSS. DENIES PAIN OR ANY DISCOMFORT AT THIS TIME. IVF INTACT AND INFUSING WELL, SITE CLEAR. KEPT COMFORTABLE. VOIDS FREELY. CALL LIGHT WITHIN REACH. WILL CONTINUE TO MONITOR.
[2019-02-13 07:00] LABS: CALCIUM 7.6 mg/dL (8.5-10.1); CARBON DIOXIDE 24.6 mmol/L (21-32); CHLORIDE SERUM 103 mmol/L (98-107); CREATININE SERUM 0.9 mg/dL (0.7-1.3); GFR1 > 60 mL/min; GLUCOSE SERUM 107 mg/dL (74-106); SODIUM SERUM 140 mmol/L (136-145)
--- NOTE | 2019-02-13 07:15 | NUR ---
RECEIVED PT FROM SLUICE TENDER NURSE. PT IN BED SLEEPING, AROUSABLE, RESP E/U ON RA. NO SIGNS OF ACUTE DISTRESS NOTED. IV TO LAC W/ NO SIGNS OF INFILTRATION. IVF INFUSING WELL. BED IN LOWEST POSITION AND CALL LIGHT WITHIN REACH. WILL CONTINUE TO MONITOR.
[2019-02-13 07:46] LABS: RED CELL DISTRIBUTION WIDTH 13.1 % (11.5-14.5)
[2019-02-13 07:47] LABS: BASOPHIL % 0 % (0-2); PLATELET COUNT 122 x10^3mcL (130-400)
[2019-02-13 09:07] VITALS: BP 110/64
--- NOTE | 2019-02-13 12:30 | NUR ---
PT RESTING INBED, AOX4, RESP E/U ON RA. C/O OF FEELING VERY WARM, VS ASSESSED, TEMP: 100.6. MEDICATED ORDERED PER EMAR, COOLING MEASURES IMPLEMTENTED. PT DENIES HEADACHE, PAIN OR N/V. BED IN LOWEST POSITION AND CALL LIGHT WITHIN REACH. WILL CONTINUE TO MONITOR.
--- NOTE | 2019-02-13 17:30 | NUR ---
PT RESTING IN BED, AOX4, RESP E/U ON RA. DENIES HEADACHE, PAIN OR N/V, TEMP: 99.8. NO ACUTE DISTRESS NOTED. IV TO LFA W/ NO SIGNS OF INFILTRATION, IVF INFUSING WELL. BED IN LOWEST POSTION AND CALL LIGHT WITHIN REACH. WILL ENDORSE TO ONCOMING NURSE.
[2019-02-13 17:42] VITALS: BP 117/69
--- NOTE | 2019-02-13 19:57 | NUR ---
RECEIVED PT IN BED, RESTING QUIETLY, WITH FAMILY MEMBER AT THE BEDSIDE. ALERT AND ORIENTED. ABLE TO VERBALIZE NEEDS. RESP. EVEN AND UNLABORED. LUNG SOUNDS CLEAR BILAT. ON ROOM AIR, NO ACUTE DISTRESS NOTED. AFEBRILE AND VITAL SIGNS STABLE.DENIES CP OR ANY DISCOMFORT AT THIS TIME. IVF, NS AT 125ML/HR, INTACT AND INFUSING VIA LFA, SITE CLEAR.NO COMPLAINTS NOTED AT THIS TIME. VOIDING FREELY. CALL LIGHT WITHIN REACH. WILL CONTINUE TO MONITOR.
[2019-02-13 20:00] VITALS: BP 122/71
--- NOTE | 2019-02-13 20:45 | NUR ---
COMPLAINED OF BODY PAIN, 5/10, ALSO TEMP. READS 101.8, MOTRIN PO GIVEN. COOLING MEASURES ALSO APPLIED. WILL CONTINUE TO MONITOR.
--- NOTE | 2019-02-13 21:45 | NUR ---
PT RESTING IN BED, STATES PAIN RELIEF. PAIN LEVEL AT 1/10. CALL LIGHT WITHIN REACH. WILL CONTINUE TO MONITOR.
--- NOTE | 2019-02-13 22:21 | NUR ---
TEMP. RECHECK SHOWS 98.6 AT THIS TIME. WILL CONTINUE TO MONITOR.
--- NOTE | 2019-02-14 02:15 | NUR ---
EYES CLOSED, APPEARS ASLEEP, EASILY AROUSABLE. RESP. EVEN AND UNLABORED. ON ROOM AIR, NO ACUTE DISTRESS NOTED. CALL LIGHT WITHIN REACH. WILL CONTINUE TO MONITOR.
[2019-02-14 05:07] LABS: RAPID PLASMA REAGIN Non Reactive (Non Reactive)
--- NOTE | 2019-02-14 05:56 | NUR ---
NO COMPLAINTS NOTED AT THIS TIME. DUE MEDS GIVEN ORDERED. ROBB. WELL. IVF INTACT AND INFUSING WELL, SITE CLEAR.RESP. EVEN AND UNLABORED. NO ACUTE DISTRESS NOTED. AFEBRILE AND VITAL SIGNS STABLE. DENIES PAIN OR ANY DISCOMFORT AT THIS TIME. WILL CONTINUE TO MONITOR.
[2019-02-14 06:22] LABS: BASOPHIL % 0.1 % (0-2); RED CELL DISTRIBUTION WIDTH 12.9 % (11.5-14.5)
[2019-02-14 06:35] VITALS: BP 102/56
[2019-02-14 06:37] LABS: CALCIUM 7.9 mg/dL (8.5-10.1); CARBON DIOXIDE 27.6 mmol/L (21-32); CHLORIDE SERUM 103 mmol/L (98-107); CREATININE SERUM 1.1 mg/dL (0.7-1.3); GFR1 > 60 mL/min; GLUCOSE SERUM 112 mg/dL (74-106); PHOSPHOROUS 3.7 mg/dL (2.5-4.9); POTASSIUM SERUM 3.5 mmol/L (3.5-5.1); SODIUM SERUM 139 mmol/L (136-145)
[2019-02-14 06:58] LABS: PLATELET COUNT 73 x10^3mcL (130-400)
--- NOTE | 2019-02-14 07:35 | NUR ---
PATIENT AWAKE AND ORIENTED TO PERSON, PLACE AND TIME. PATIENT DENIES SHORTNESS OF BREATH, NAUSEA/VOMITING OR PAIN AT THIS TIME. IVF NS AT 125CC/HR VIA IV SITE TO LFA. CALL LIGHT WITHIN REACH. SIDE RAILS UP X2. BED IS AT LOWEST POSITION. THE AND SISTER ARE AT BEDSIDE.
[2019-02-14 08:21] VITALS: BP 110/63
--- NOTE | 2019-02-14 10:25 | NUR ---
DR. KNIGHT AND THE TEAM WERE MAKING ROUND TO SEE THE PATIENT. CARE PLAN WAS EXPLAINED TO THE PATIENT AND THE FAMILY IN [place] BY DR. KNIGHT. CONCERNS WERE ADDRESSED; PATIENT AND FAMILY VERBALIZED UNDERSTANDING.
[2019-02-14 17:05] VITALS: BP 125/69
--- NOTE | 2019-02-14 18:49 | NUR ---
PATIENT IS RESTING IN BED WITHOUT DISTRESS NOTED AT THIS TIME. THE FAMILY INCLUDING HIS AND SISTER IS AT BEDSIDE WITH THE PATIENT.
--- NOTE | 2019-02-14 18:55 | NUR ---
PATIENT HAS TEMP 102.9 ORALLY; MOTRIN 600 MG PO MEDICATED TO THE PATIENT. WILL ENDORSE TO [facility] NURSE TO RECHECK TEMP AFTER 1HR OF TAKING MOTRIN.
--- NOTE | 2019-02-14 19:30 | NUR ---
RECIEVED PATIENT AT START OF SHIFT A/O X4. OCCITAN SPEAKING ONLY, AT BEDSIDE TO TRANSLATE. MED-SURG. NO COMPLAINT OF PAIN, BREATHS REGULAR AND EVEN ON RA. IV TO LFA IS INFUSING. ON PATIENT'S UPPER FOREARM ABOVE THE IV SITE THERE IS A SMALL SCAB WITH ERYTHEMA, WARMTH, AND PAIN NOTED AROUND IT. THE ENTIRE LEFT ARM HAS NON-PITTING EDEMA AND BLANCHABLE REDNESS.IV TO LFA WAS D/CD. NEW IV STARTED ON RFA 20G. PICTURE IN CHART OF SCAB AND ERYTHEMA NOTED ON LEFT ARM. WILL NOTIFY DR. MEHTA. BED LOCKED AND IN LOWEST POSITION. CALL LIGHT AND BEDSIDE TABLE WITHIN REACH.
--- NOTE | 2019-02-14 20:00 | NUR ---
PATIENTS TEMP IS 98.7. HIS FEVER HAS BROKEN.
[2019-02-14 20:30] VITALS: BP 104/66
--- NOTE | 2019-02-14 21:34 | NUR ---
PATIENT GIVEN TYLENOL PO PER EMAR FOR REPORT OF 5/10 PAIN TO LEFT FOREARM NEAR HIS SMALL SCAB.
--- NOTE | 2019-02-14 23:01 | NUR ---
DR. CRESPO RETURNED PAGE AND IS NOW AWARE OF PATIENT'S SMALL SCAB AND ERYTHEMA ON LEFT ARM AT THIS TIME.
--- NOTE | 2019-02-15 02:00 | NUR ---
PATIENT'S EYES ARE CLOSED, BREATHS EVEN, NO SIGNS OF DISTRESS. CALL LIGHT AND BEDSDIE TABLE WITHIN REACH. IV INFUSING WITHOUT COMPLICATION.
[2019-02-15 05:54] VITALS: BP 108/64
--- NOTE | 2019-02-15 06:00 | NUR ---
PATIENT SLEPT WELL THROUGH THE NIGHT. PATIENT IS AWAKE, A/O X4 FOLLOWING COMMANDS. NO SOB ON RA. DENIES PAIN. IV INFUSING TO RFA WITHOUT ERYTHEMA OR INFILTRATION. BED LOCKED AND IN LOWEST POSIITON. CALL LIGHT WITHIN REACH. WILL ENDORSE CARE TO DAYSHIFT NURSE.
[2019-02-15 06:29] LABS: BASOPHIL % 0.2 % (0-2); RED CELL DISTRIBUTION WIDTH 12.9 % (11.5-14.5)
[2019-02-15 06:41] LABS: CALCIUM 7.5 mg/dL (8.5-10.1); CARBON DIOXIDE 24.3 mmol/L (21-32); CHLORIDE SERUM 101 mmol/L (98-107); CREATININE SERUM 1.4 mg/dL (0.7-1.3); GFR1 > 60 mL/min; GLUCOSE SERUM 95 mg/dL (74-106); MAGNESIUM 1.6 mg/dL (1.8-2.4); SODIUM SERUM 137 mmol/L (136-145)
[2019-02-15 07:19] LABS: PLATELET COUNT 48 x10^3mcL (130-400)
--- NOTE | 2019-02-15 07:45 | NUR ---
AAO TIMES 4. NO TELE. STANDARD PRECAUTIONS. LUNGS CTA. NO SOB. O2 SAT ON RA 99%. BS'S ACTIVE TIMES 4. URINATES WITHOUT DIFFICULTY USING URINAL, URINE CLEAR YELLOW. PERIPHERAL PULSES PALPABLE. NO EDEMA. LAC AREA WITH DRIED SMALL SCAB, SMALL AMOUNT OF PINK SURRROUNDING WOUND, NO DRAINAGE, AND PER PHOTO AND HEAD LOADER THE ERYTHEMA NOTED SURRDOUNGING THIS WOUND HAS DIMINISHED. DENIES DISCOMFORT.
[2019-02-15 08:05] LABS: POTASSIUM SERUM 2.9 mmol/L (3.5-5.1)
[2019-02-15 08:09] VITALS: BP 113/71
--- NOTE | 2019-02-15 08:15 | NUR ---
SCD'S ON BLE.
--- NOTE | 2019-02-15 09:42 | NUR ---
DR ENCISO WAS CALLED AT 0831 TO ALERT HIM TO THIS PATIENT'S SERUM POTASSIUM LEVEL OF 2.9. HE ORDERED KCL 40 MEQ, IT WAS JUST NOW GIVEN. PATIENT TOLERATED AND SWALLOWED WITHOUT DIFFICULTY.
--- NOTE | 2019-02-15 10:47 | NUR ---
I NOTIFIED DR WETZEL THAT HIS SERUM MAGNESIUM IS 1.6, SHE STATED SHE WILL ORDER MEDICATION REPLACMENT.
[2019-02-15 17:00] VITALS: BP 128/70
--- NOTE | 2019-02-15 17:54 | NUR ---
AAO TIMES 4. DENIES DISCOMFORT. NO SOB. STANDARD PRECAUTIONS. MED SURG PATIENT. COOPERATIVE. IV SITE RIGHT WRIST CDI. NO SOB. FAMILY PRESENT, SUPPORTIVE. WATCHING TV AND SLEEPING AT TIMES.
--- NOTE | 2019-02-15 19:30 | NUR ---
RECIEVED PATIENT AT START OF SHIFT A/O X4, FAROESE SPEAKING. AT BEDSIDE TO TRANSLATE, PATIENT DENIES PAIN. NO SOB ON RA. MED-SURG. LEFT ARM IS NO LONGER ERYTHEMIC, EDEMETOUS, OR TENDER LIKE IT WAS LAST NIGHT 02/14. IV ON RFA IS INFUSING WITHOUT ERYTHEMA OR INFILTRATION. BED LOCKED AND IN LOWEST POSIITON. CALL LIGHT AND BEDSIDE TABLE WITHIN REACH.
--- NOTE | 2019-02-15 21:05 | NUR ---
TYLENOL GIVEN PER EMAR FOR TEMPERATURE OF 100.5.
--- NOTE | 2019-02-15 22:05 | NUR ---
PATIENTS TEMPERATURE REDUCED TO 98.7.
[2019-02-15 22:08] VITALS: BP 122/70
--- NOTE | 2019-02-16 06:13 | NUR ---
PATIENT SLEP WELL THROUGH THE NIGHT. NO COMPLAINT OF PAIN THIS MORNING. NO SOB ON RA. IV INFUSING WELL TO RFA. CALL LIGHT WITHIN REACH. WILL NEDORSE CARE TO DAYSHIFT NURSE.
[2019-02-16 06:39] VITALS: BP 107/67
[2019-02-16 07:16] LABS: CALCIUM 7.8 mg/dL (8.5-10.1); CARBON DIOXIDE 25.4 mmol/L (21-32); CHLORIDE SERUM 103 mmol/L (98-107); CREATININE SERUM 1.4 mg/dL (0.7-1.3); GFR1 > 60 mL/min; GLUCOSE SERUM 111 mg/dL (74-106); MAGNESIUM 1.6 mg/dL (1.8-2.4); PHOSPHOROUS 4.4 mg/dL (2.5-4.9); SODIUM SERUM 139 mmol/L (136-145)
[2019-02-16 07:17] LABS: BASOPHIL % 0.5 % (0-2); RED CELL DISTRIBUTION WIDTH 12.7 % (11.5-14.5)
[2019-02-16 07:18] LABS: POTASSIUM SERUM 2.9 mmol/L (3.5-5.1)
--- NOTE | 2019-02-16 07:30 | NUR ---
RECEIVED PT RESTING IN BED. NO ACUTE DISTRESS. RESTING WITH EYES CLOSED BUT EASILY AROUSABLE. BREATHING EVEN AND UNLABORED ON RA. IVF INFUSING TO RFA, NO REDNESS OR SWELLING NOTED. HOB ELEVATED. GEN WEAKNESS. AT BEDSIDE. BED IN LOW POSITION, CALL LIGHT WITHIN REACH. WILL CONTINUE TO MONITOR.
[2019-02-16 08:09] VITALS: BP 111/69
[2019-02-16 09:18] LABS: PLATELET COUNT 48 x10^3mcL (130-400)
--- NOTE | 2019-02-16 11:21 | NUR ---
PT SITTING UP IN BED. NO ACUTE DISTRESS. RESP EVEN AND UNLABORED ON RA. C/O GEN WEAKNESS. IVF INFUSING, NO REDNESS OR SWELLING NOTED. AT BEDSIDE. DIETITIAN AT BEDSIDE TO EVALUATE PT. CALL LIGHT WITHIN REACH. WILL CONTINUE TO MONITOR.
--- NOTE | 2019-02-16 14:13 | NUR ---
Initial Nutrition Assessment: 250/B TREY FAUST IA HR Dx: ALOC, Encephalitis PMHx: Non significant PSHx: not documented Labs: K 2.9L, BG 111H, CREAT 1.4H, MG 1.6L, HGB 10.2L Meds: Zofran, Tylenol, NS Diet: Regular PO Intake: (02/15) breakfast, dinner 85%, lunch 80%, (02/14) dinner 85%, lunch 80% Ht: 190.5 cm (75") Wt: 74.9 kg (165#) BMI: 20.7 kg/m2 Bed scale: 165.9# IBW: 196# (89 kg) %IBW: 84 UBW: 175# Age: 33/M Food Allergies: NKFA Skin: intact Enrique: 19 Edema: none GI: Last BM: 02/13 Per H&P, Pt is a 33 years old male with no significant past medical history admitted for headache for the past 3 weeks then became confused. RDN Visit (02/16): Patient was alert and oriented and cousin was by the bedside who helped with Guamanian translation. Patient said that he ate most of his breakfast this morning and admits to having lost 10# x 2 months. 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 FNS received consult for "malnutrition" on 02/14. Problem with: N/V/D/C: no Problems with: Chewing/Swallowing: none Current appetite: poor Recent wt change: 10# x 2 months %wt change: 5 Vitamin/Supplement use: none Special diet at home: regular Physical activity: none Nutrition education given: Emphasized on eating well- cooked foods and to avoid raw foods issac to high bacterial load. PO was encouraged. Food-drug interactions: none Education given: n/a Estimated Nutritional Needs Based on current body weight 75 kg Energy: 3590-6404 kcal/d (25-30 kcal/kg) Protein: 90-105 g/d (1.2-1.4 g/kg) - HIV Fluid: 5440-5339 ml/d (1 ml/kcal) or per doctor Nutrition Diagnosis 1. Unintentional weight loss related to HIV as evidenced by self- reported weight loss of 10# x 2 months. Intervention 1. Recommend continuing regular diet. 2. Recommend Ensure High protein BID. Discussed recommendations with Dr. Herbert. Monitor/Evaluate Goal: PO intake at least 75% of estimated needs Monitor: PO intake, Labs, GI function F/U in 3-5 days as moderate risk
--- NOTE | 2019-02-16 14:14 | NUR ---
1. Recommend continuing regular diet. 2. Recommend Ensure High protein BID. Discussed recommendations with Dr. Herbert.
[2019-02-16 16:10] VITALS: BP 98/53
--- NOTE | 2019-02-16 19:20 | NUR ---
RECEIVED PT FROM PREVIOUS SHIFT NURSE. PT AOX4, DENIES L[place]ON[place]/DIZZINESS. MED SURG PT, DENIES CP/PRESSURE. DENIES SOB/DIFFICULTY BREATHING, ON RA. IV TO RFA, INTACT AND PATENT. BED IN LOWEST POSITION. CALL LIGHT WITHIN REACH. WILL CONTINUE TO MONITOR.
--- NOTE | 2019-02-16 19:36 | NUR ---
PT RESTING IN BED. NO ACUTE DISTRESS. AAOX4. RESP EVEN AND UNLABORED ON RA. NO C/O PAIN. IVF TO RFA, NO REDNESS OR SWELLING NOTED. PT C/O ERYTHEMA TO LFA, ICE PACK GIVEN REQUESTED. GEN WEAKNESS. VISITOR AT BEDSIDE. BED IN LOW POSITION, CALL LIGHT WITHIN REACH. WILL ENDORSE TO ONCOMING SHIFT.
[2019-02-16 19:43] VITALS: BP 105/71
--- NOTE | 2019-02-17 00:30 | NUR ---
PT RESTING IN BED. RR EVEN AND UNLABORED. IN NO ACUTE DISTRESS. CALL LIGHT WITHIN REACH. WILL CONTINUE TO MONITOR.
[2019-02-17 04:45] VITALS: BP 114/74
--- NOTE | 2019-02-17 06:15 | NUR ---
PT CONTINUES TO REST, IN NO ACUTE DISTRESS. DENIED ANY PAIN OR DISCOMFORT THROUGHOUT THE NIGHT. BED IN LOWEST POSITION. CALL LIGHT WITHIN REACH. WILL CONTINUE TO MONITOR.
[2019-02-17 06:38] LABS: BASOPHIL % 0.3 % (0-2); RED CELL DISTRIBUTION WIDTH 12.9 % (11.5-14.5)
[2019-02-17 06:58] LABS: CALCIUM 7.8 mg/dL (8.5-10.1); CARBON DIOXIDE 25.8 mmol/L (21-32); CHLORIDE SERUM 103 mmol/L (98-107); CREATININE SERUM 1.4 mg/dL (0.7-1.3); GFR1 > 60 mL/min; GLUCOSE SERUM 103 mg/dL (74-106); MAGNESIUM 1.5 mg/dL (1.8-2.4); PHOSPHOROUS 3.8 mg/dL (2.5-4.9); POTASSIUM SERUM 3.1 mmol/L (3.5-5.1); SODIUM SERUM 140 mmol/L (136-145)
[2019-02-17 07:09] LABS: PLATELET COUNT 49 x10^3mcL (130-400)
--- NOTE | 2019-02-17 07:35 | NUR ---
PT RESTING IN BED. NO ACUTE DISTRESS. AAOX4. BREATHING EVEN AND UNLABORED ON RA. IVF INFUSING, NO REDNESS OR SWELLING TO IV SITE. HOB SLIGHTLY ELEVATED. GEN WEAKNESS. BED IN LOW POSITION, CALL LIGHT WITHIN REACH. WILL CONTINUE TO MONITOR.
[2019-02-17 08:24] VITALS: BP 116/66
--- NOTE | 2019-02-17 11:21 | NUR ---
SPOKE WITH DR. WILSON REGARDING PT'S K+ 3.1, MAG 1.5, AND PLATELET 49. NO NEW ORDERS AT THIS TIME. WILL CONTINUE TO MONITOR.
--- NOTE | 2019-02-17 12:38 | NUR ---
PT RESTING IN BED. GETTING BED BATH DONE, ASSISTED BY FAMILY MEMBERS. NO ACUTE DISTRESS. RESP EVEN AND UNLABORED ON RA. IVF INFUSING, NO REDNESS OR SWELLING NOTED. FALL PRECAUTIONS. CALL LIGHT WITHIN REACH. WILL CONTINUE TO MONITOR.
[2019-02-17 16:53] VITALS: BP 113/66
--- NOTE | 2019-02-17 18:27 | NUR ---
PT IN NO ACUTE DISTRESS. AAOX4. EATING DINNER AT THIS TIME. RESP EVEN AND UNLABORED ON RA. IVF INFUSING, NO REDNESS OR SWELLING NOTED. HOB ELEVATED. FALL PRECAUTIONS. BED IN LOW POSITION, CALL LIGHT WITHIN REACH. WILL ENDORSE TO ONCOMING SHIFT.
--- NOTE | 2019-02-17 19:05 | NUR ---
RECEIVED PT FROM PREVIOUS SHIFT NURSE. PT AOX4, DENIES [place]O/DIZZINESS. MED SURG PT, DENIES CP/PRESSURE. DENIES SOB/DIFFICULTY BREATHING AT THIS TIME. IV TO RFA, INTACT AND PATENT. BED IN LOWEST POSITION. CALL LIGHT WITHIN REACH. WILL CONTINUE TO MONITOR.
[2019-02-17 19:17] VITALS: BP 113/59
--- NOTE | 2019-02-17 22:13 | NUR ---
PT C/O PAIN UPON URINATION AND PAIN ON PENIS. WARTS NOTED ON PENIS. DR. CRESPO NOTIFIED.
--- NOTE | 2019-02-17 22:16 | NUR ---
PT C/O PAIN UPON URINATION AND PAIN ON PENIS. LESIONS NOTED ON PENIS. DR. CRESPO NOTIFIED.
--- NOTE | 2019-02-18 03:07 | NUR ---
PT RESTING IN BED. RR EVEN AND UNLABORED. IN NO ACUTE DISTRESS. CALL LIGHT WITHIN REACH. BED IN LOWEST POSITION. WILL CONTINUE TO MONITOR.
[2019-02-18 05:24] VITALS: BP 108/69
[2019-02-18 06:33] LABS: BASOPHIL % 0.4 % (0-2)
[2019-02-18 07:06] LABS: CARBON DIOXIDE 26.8 mmol/L (21-32); CHLORIDE SERUM 104 mmol/L (98-107); CREATININE SERUM 1.3 mg/dL (0.7-1.3); GFR1 > 60 mL/min; GLUCOSE SERUM 98 mg/dL (74-106); MAGNESIUM 1.5 mg/dL (1.8-2.4); PHOSPHOROUS 3.8 mg/dL (2.5-4.9); POTASSIUM SERUM 3.4 mmol/L (3.5-5.1); SODIUM SERUM 140 mmol/L (136-145)
--- NOTE | 2019-02-18 07:21 | NUR ---
REPORT TAKEN FROM HOSPITAL MORTICIAN NURSE AT THE BEDSIDE, PT AWAKE AND ALERT AT THIS TIME. PT'S AT THE BEDSIDE WELL. WILL CONTINUE TO MONITOR.
[2019-02-18 08:09] VITALS: BP 109/68
[2019-02-18 08:25] LABS: PLATELET COUNT 47 x10^3mcL (130-400)
[2019-02-18 12:02] VITALS: BP 108/64
[2019-02-18 16:16] VITALS: BP 104/69
--- NOTE | 2019-02-18 18:26 | NUR ---
PT TOLERATED TREATMENT WELL DURING THE SHIFT, MET WITH DOCTORS DUEING ROUNDS. FAMILY PRESENT AT THE BEDSIDE DURING SHIFT, HOWEVER MEDICAL HX AND CONDITION ONLY DISCUSSED WITH PT'S . PT ABLE TO TOLERATED ENSURE, BUT POOR APPETITE CONTINUES, PROVIDER ADDED MEGACE TO EMAR. PT ABULATED TWICE DURING THE SHIFT, APPEARED STEADY ON HIS FEET. PT DENIED PAIN OR ADDITIONAL NEEDS AT THIS TIME, WILL REPORT TO SCHOOL HEALTH AIDE NURSE TIM SUTTON.
--- NOTE | 2019-02-18 19:11 | NUR ---
REPORT GIVEN TO GREASE MAKER HEAD NURSE, CARE ENDORSED
--- NOTE | 2019-02-18 20:00 | NUR ---
RECEIVED PT IN BED, ALERT AND ORIENTED. DENIES HEADACHE/DIZZINESS. RESP. EVEN AND UNLABORED. ON ROOM AIR, NO ACUTE DISTRESS NOTED. IVF, NS AT 125ML/HR, INTACT AND INFUSING VIA RFA, SITE CLEAR. FAMILY AT THE BEDSIDE, VERY SUPPORTIVE. NO COMPLAINTS NOTED AT THIS TIME.WITH GEN. WEAKNESS, NEEDS ASSIST. WITH AMBULATION. CALL LIGHT WITHIN REACH. WILL CONTINUE TO MONITOR.
[2019-02-18 20:39] VITALS: BP 109/68
--- NOTE | 2019-02-19 01:36 | NUR ---
NO COMPLAINTS NOTED AT THIS TIME. RESTING QUIETLY IN BED, WITH EYES CLOSED, APPEARS ASLEEP, EASILY AROUSABLE.RESP. EVEN AND UNLABORED. NO ACUTE DISTRESS NOTED. WILL CONTINUE TO MONITOR.
[2019-02-19 05:56] VITALS: BP 105/62
--- NOTE | 2019-02-19 05:57 | NUR ---
AFEBRILE AND VITAL SIGNS STABLE. DENIES PAIN OR ANY DISCOMFORT AT THIS TIME. DUE MEDS GIVEN ORDERED, ROBB. WELL. IVF INTACT AND INFUSING WELL, SITE CLEAR . VOIDING FREELY. KEPT COMFORTABLE. NO COMPLAINTS NOTED AT THIS TIME. RESP. EVEN AND UNLABORED. NO ACUTE DISTRESS NOTED. WILL CONTINUE TO MONITOR.
[2019-02-19 07:40] VITALS: BP 97/55
--- NOTE | 2019-02-19 08:06 | NUR ---
AAO TIMES 4. MED SURG PATIENT. LUNGS CTA. NO SOB. O2 SAT ON RA 98%. BS'S ACTIVE TIMES 4. CHEN WITH GENERALIZED WEAKNESS. PERIPHERAL PULSES PALPABLE. NO EDEMA. FLAT AFFECT. A FAMILY MEMBER ALWAYS PRESENT, THEY ARE SUPPORTIVE AND CARING. IV SITE CDI. COOPERATIVE.
[2019-02-19 16:41] VITALS: BP 113/62
--- NOTE | 2019-02-19 17:45 | NUR ---
AAO TIMES 4. MED SURG PATIENT. STANDARD PRECAUTIONS. IV SITE RFA CDI. COOPERATIVE, SMILES OCCASIONALLY. PRESENT MOST OF DAY, SUPPORTIVE AND CARING. SCD BLE. COOPERATIVE.
--- NOTE | 2019-02-19 20:08 | NUR ---
PT RECIEVED FROM DAY NURSE. PT RESTING IN BED COMFORTABLY AT THIS TIME, AT BEDSIDE. PT A/OX4, CALM AND COOPERATIVE AT THIS TIME. MED SURG PT. DENIES CP, N/V, DIZZINESS, AND PALPATATIONS. PALPABLE PULSES, NO EDEMA NOTED AT THIS TIME. BREATHING E/U ON RA AT THIS TIME. ABD SOFT AND ROUND, DENIES PAIN TO PALPATATION. GENERALZIED WEAKNESS, AMBULATES WITH CANE AT BEDSIDE. RFA IV, CDI. BED AT LOWEST POSITION. CALL LIGHT WITHIN REACH. WILL CONTINUE TO MONITOR.
[2019-02-19 20:18] VITALS: BP 111/61
--- NOTE | 2019-02-20 | NUR ---
PT. RESTING IN BED COMFORTABLY AT THIS TIME. DENIES PAIN OR DISCOMFORT AT THIS TIME. BREATHING E/U ON RA. BED AT LOWEST POSITION. CALL LIGHT WITHIN REACH. WILL CONTINUE TO MONITOR.
[2019-02-20 06:17] VITALS: BP 110/62
--- NOTE | 2019-02-20 06:37 | NUR ---
PT RESTING IN BED AT THIS TIME. AT BEDSIDE. DENIES PAIN AT THIS TIME. BREATHING E/U ON RA. ALL NEEDS AND CONCERNS ADDRESSED THIS SHIFT. BED AT LOWEST POSITION. CALL LIGHT WITHIN REACH. WILL ENDORSE TO DAY NURSE.
[2019-02-20 06:39] LABS: CALCIUM 7.9 mg/dL (8.5-10.1); CARBON DIOXIDE 24.9 mmol/L (21-32); CHLORIDE SERUM 105 mmol/L (98-107); CREATININE SERUM 1.1 mg/dL (0.7-1.3); GFR1 > 60 mL/min; GLUCOSE SERUM 91 mg/dL (74-106); MAGNESIUM 1.3 mg/dL (1.8-2.4); PHOSPHOROUS 3.8 mg/dL (2.5-4.9); SODIUM SERUM 140 mmol/L (136-145)
[2019-02-20 07:15] LABS: BASOPHIL % 0.2 % (0-2); PLATELET COUNT 58 x10^3mcL (130-400); RED CELL DISTRIBUTION WIDTH 12.8 % (11.5-14.5)
--- NOTE | 2019-02-20 07:50 | NUR ---
RECEIVED PT IN BED, A/A/OX4 DENIES L[place]ONO. RESP EVEN AND UNLABORED WITH CLEAR BS BILAT. DENIES ANY SOB/CP/PRESSURE AT THIS TIME. NO EDEMA NOTED WITH IVF TO RT UPPER FA. ABD SOFT, NONTENDER WITH ACTIVE BS X4. DENIES ANY N/V AT THIS TIME. VOIDING FREELY. AMBULATORY WITH ASSISTANCE AND A CANE. PER REPORT PT HAS LESIONS TO PENIS BUT REFUSED ASSESSMENT AT THIS TIME. PER REPORT DR. KOHLER EXAMINED LESIONS. CALL LIGHT IN REACH NEEDS ATTENDED TO.
[2019-02-20 08:46] VITALS: BP 110/61
--- NOTE | 2019-02-20 11:20 | NUR ---
PT RESTING AT THIS TIME. DENIES ANY DISCOMFORT. CALL LIGHT IN REACH NEEDS ATTENDED TO.
--- NOTE | 2019-02-20 14:00 | NUR ---
DR. HUYNH PAGED AND REMINDED OF MG 1.3 AND K3.0, STATED SHE WOULD ORDER COVERAGE. AWAITING NEW ORDERS.
--- NOTE | 2019-02-20 16:00 | NUR ---
PT AMBULATING DOWN THE HALLWAY. TOLERATED ACTIVITY WELL.
[2019-02-20 17:32] VITALS: BP 110/70
--- NOTE | 2019-02-20 18:00 | NUR ---
PT C/O MILD DISCOMFORT TO IV SITE AFTER STARTING IVP ANTIFUNGAL. NOTED SITE WITH MILD ERRYTHEMA ABOVE IV SITE. IV D/C. NEW IV INSERTED TO RT LOWER FOREARM AT PT'S REQUEST. HE DID NOT WANT IV INSERTED TO LT ARM OT AT RT AC AREA. NEW 22G IV INSERTED, PT TOLERATED WELL.
--- NOTE | 2019-02-20 20:03 | NUR ---
PATIENT RECEIVED RESTING IN BED. RESPIRATION EVEN AND UNLABORED, ON ROOM AIR. DENIES PAIN AT THIS TIME. ONGOING 0.9% NS AT 125 CC/HR INFUSING WELL AT THE RIGHT FOREARM. POOR APPETIRE. GENERALIZED WEAKNESS TO EXTREMITES. LESIONS TO PENIS. WILL CONTINUE TO MONITOR.
[2019-02-20 21:02] VITALS: BP 98/54
[2019-02-21 05:36] VITALS: BP 105/54
--- NOTE | 2019-02-21 06:32 | NUR ---
PATIENT RESTING IN BED. RESPIRATION EVEN AND UNLABORED, ON ROOM AIR. FAMILY MEMBER AT THE BEDSIDE. IV SITE NO SIGN OF INFILTRATION. ASSISTED WITH NEEDS. SAFETY OBSERVED. PLACED BED IN THE LOWEST POSITION. PLACED CALL LIGHT WITHIN REACH AT ALL TIMES.
--- NOTE | 2019-02-21 07:09 | NUR ---
RECEIVED PT FROM HOT PATCHER NURSE. PT IN BED SLEEPING, AROUSABLE, RESP E/U ON RA. NO SIGNS OF ACUTE DISTRESS NOTED. IV TO RFA W/ NO SIGNS OF INFILTRATION, IVF INFUSING WELL. BED IN LOWEST POSITION AND CALL LIGHT WITHIN REACH. WILL CONTINUE TO MONITOR.
[2019-02-21 07:27] LABS: BASOPHIL % 0.1 % (0-2); RED CELL DISTRIBUTION WIDTH 13.4 % (11.5-14.5)
[2019-02-21 07:55] VITALS: BP 110/68
[2019-02-21 08:01] LABS: CALCIUM 7.8 mg/dL (8.5-10.1); CARBON DIOXIDE 22.7 mmol/L (21-32); CHLORIDE SERUM 105 mmol/L (98-107); GFR1 > 60 mL/min; GLUCOSE SERUM 91 mg/dL (74-106); MAGNESIUM 1.3 mg/dL (1.8-2.4); SODIUM SERUM 141 mmol/L (136-145)
[2019-02-21 08:07] LABS: POTASSIUM SERUM 2.9 mmol/L (3.5-5.1)
[2019-02-21 08:16] LABS: PLATELET COUNT 63 x10^3mcL (130-400)
[2019-02-21 11:33] VITALS: BP 113/60
--- NOTE | 2019-02-21 12:04 | NUR ---
Follow-up Nutrition Assessment: 250/B TREY FAUST MR Dx: ALOC, Encephalitis PMHx: Non significant Labs: (02/21) K 2.9L, MG 1.3L, HGB 9.0L, WBC 3.4L Meds: Zofran, Tylenol, NS, Bactrim, fungizone, megace Diet: Regular w/ ensure high protein BID PO Intake: (02/20) breakfast, lunch 50%, dinner 0%, (02/19) breakfast 80%, lunch 60%, dinner 40%, (02/18) breakfast 80% Weights: (02/16) 75.4 kg, (02/21) 74.3 kg Skin: lesions to penis Enrique: 19 I/Os: (02/21) 3815/2550 (1265) Edema: none GI: Last BM: 02/19 RDN Visit (02/21): Patient was alert and oriented and said that he does not have any N/V/D/C at this time and that he has good appetite. Patient has been consuming Ensure High protein BID. Patient has lost ~ 1kg in 5 days. Estimated Nutritional Needs Based on current body weight 75 kg Energy: 9059-5223 kcal/d (25-30 kcal/kg) Protein: 90-105 g/d (1.2-1.4 g/kg) - HIV Fluid: 2345-0687 ml/d (1 ml/kcal) or per doctor Nutrition Diagnosis 1. Unintentional weight loss related to HIV as evidenced by self- reported weight loss of 10# x 2 months. (ongoing) Intervention 1. Recommend continuing regular diet w/ Ensure High Protein BID. Monitor/Evaluate Goal: Have pt meet at least 75% of estimated needs Monitor: PO intake, Labs, GI function F/U in 3-5 days as moderate risk 02/24-02/26.
--- NOTE | 2019-02-21 12:04 | NUR ---
Recommend continuing regular diet w/ Ensure High Protein BID.
--- NOTE | 2019-02-21 12:10 | NUR ---
PT RESTING IN BED, AOX4, RESP E/U ON RA. DENIES HEADACHE, NAUSEA OR FEVER. NO ACUTE DISTRESS NOTED. BED IN LOWEST POSITION AND CALL LIGHT WITHIN REACH. WILL CONTINUE TO MONITOR.
[2019-02-21 16:16] VITALS: BP 104/64
--- NOTE | 2019-02-21 17:20 | NUR ---
PT RESTING IN BED, AOX4, RESP E/U ON RA. DENIES PAIN, DIZZINESS OR N/V. NO ACUTE DISTRESS NOTED. IV TO RFA W/ NO SIGNS OF INFILTRATION, IVF INFUSING WELL. BED IN LOWEST POSITION, CALL LIGHT WITHIN REACH AND CANE AT BEDSIDE. WILL ENDORSE TO ONCOMING NURSE.
--- NOTE | 2019-02-21 19:20 | NUR ---
RECIEVED PT IN NO ACUTE DISTRESS. AOX4. MED SURG. BREATHING E/U. DENIES PAIN. IV TO RFA, PATENT, NO REDNESS/SWELLING. BED IN LOWEST POSITION, 2 SIDE RAILS UP, CALL LIGHT IN REACH. INSTRUCTED TO CALL FOR ASSISTANCE.
[2019-02-21 20:09] VITALS: BP 108/64
--- NOTE | 2019-02-22 00:59 | NUR ---
RESTING WITH EYES CLOSED. BREATHING E/U. NO ACUTE DISTRESS NOTED. WILL CONTINUE TO MONITOR.
[2019-02-22 05:57] VITALS: BP 107/67
[2019-02-22 06:45] LABS: RED CELL DISTRIBUTION WIDTH 13.1 % (11.5-14.5)
[2019-02-22 06:55] LABS: CALCIUM 7.8 mg/dL (8.5-10.1); CHLORIDE SERUM 107 mmol/L (98-107); CREATININE SERUM 1.1 mg/dL (0.7-1.3); GFR1 > 60 mL/min; GLUCOSE SERUM 99 mg/dL (74-106); MAGNESIUM 1.3 mg/dL (1.8-2.4); PHOSPHOROUS 3.9 mg/dL (2.5-4.9); SODIUM SERUM 143 mmol/L (136-145)
[2019-02-22 07:03] LABS: PLATELET COUNT 63 x10^3mcL (130-400)
[2019-02-22 07:05] LABS: POTASSIUM SERUM 2.9 mmol/L (3.5-5.1)
[2019-02-22 08:32] VITALS: BP 111/69
[2019-02-22 17:03] VITALS: BP 112/71
--- NOTE | 2019-02-22 19:17 | NUR ---
REPORT GIVEN TO QI SPECIALIST NURSE AT THE BEDSIDE, PT AWAKE AND ALERT EATING FOOD, DENIED PAIN OR NEEDS AT THIS TIME. NO NEW EVENTS TO REPORT, CARE ENDORSED
[2019-02-22 19:29] VITALS: BP 124/78
--- NOTE | 2019-02-22 20:12 | NUR ---
PT CURRENTLY RESTING IN BED, NO ACUTE DISTRESS. A/O X4. NO TELE, MED/SURG. DENIES CHEST PAIN. PULSES PALPABLE IN ALL EXTREMITIES, NO EDEMA NOTED. LUNG SOUNDS CTA BILATERALLY, DENIES SOB. BOWEL SOUNDS ACTIVE, LAST BM 02/22/19. VOIDING WELL. MILD GENERALIZED WEAKNESS, AMBULATORY WITH CANE. PENILE LESIONS NOTED. DENIES DYSURIA, VOIDING WELL. IV PATENT AND INTACT. BED IN LOWEST POSITION, SIDE RAILS UP X2, CALL LIGHT WITHIN REACH. WILL CONTINUE TO MONITOR.
--- NOTE | 2019-02-22 22:33 | NUR ---
BLANCHABLE ERRYTHEMA NOTED TO RFA IV. IV DC'D, CATHETER INTACT. NEW IV STARTED IN SIRISHA. PT TOLERATED WELL. WILL CONTINUE TO MONITOR.
--- NOTE | 2019-02-23 00:16 | NUR ---
PT C/O RUE PAIN 5/10, MEDICATED PER EMAR. WILL CONTINUE TO MONITOR.
[2019-02-23 05:13] VITALS: BP 116/75
--- NOTE | 2019-02-23 06:15 | NUR ---
PT SLEPT PERIODICALLY THROUGHOUT NIGHT, NO ACUTE DISTRESS. ALL NEEDS MET AND ATTENDED TO. NO SIGNFICANT CHANGES. IV PATENT AND INTACT. MEDICATED PAIN PER EMAR. BED IN LOWEST POSITION, SIDE RAILS UP X2, CALL LIGHT WITHIN REACH. WILL ENDORSE CARE TO ONCOMING NURSE.
--- NOTE | 2019-02-23 07:17 | NUR ---
ASSUMED CARE OF PATIENT. AWAKE AND ALERT THIS AM. NO COMPLAINTS OF PAIN OR DISCOMFORT. NO APPARENT DISTRESS NOTED. IV TO SIRISHA PATENT AND INTACT, INFUSING NS AT 125ML/HR. AT BEDSIDE. WILL CONTINUE TO MONITOR.
[2019-02-23 07:18] LABS: BASOPHIL % 0.5 % (0-2); RED CELL DISTRIBUTION WIDTH 13.2 % (11.5-14.5)
[2019-02-23 07:20] LABS: CALCIUM 7.7 mg/dL (8.5-10.1); CARBON DIOXIDE 22.5 mmol/L (21-32); CHLORIDE SERUM 108 mmol/L (98-107); CREATININE SERUM 1.3 mg/dL (0.7-1.3); GFR1 > 60 mL/min; GLUCOSE SERUM 89 mg/dL (74-106); MAGNESIUM 1.3 mg/dL (1.8-2.4); PHOSPHOROUS 4.8 mg/dL (2.5-4.9); SODIUM SERUM 145 mmol/L (136-145)
[2019-02-23 07:47] LABS: PLATELET COUNT 68 x10^3mcL (130-400)
--- NOTE | 2019-02-23 08:28 | NUR ---
PATIENT WORKING WITH PT. SEEN AMBULATING WITH MINIMIMUM ASSIST WITH NO ASSISTIVE DEVICES.
--- NOTE | 2019-02-23 08:31 | NUR ---
PER PT, PATIENT DOES NOT NEED PT AND CAN AMBULATE INDEPENDENTLY.
[2019-02-23 08:37] VITALS: BP 116/86
--- NOTE | 2019-02-23 09:07 | NUR ---
EATING OUTSIDE FOOD WITH NO ISSUE. NO COMPLAINTS OF PAIN OR DISCOMFORT. NO APAPRENT DISTRESS. FAMILY REMAINS AT BEDSIDE.
--- NOTE | 2019-02-23 11:12 | NUR ---
PATIENT SEEN RESTING IN ROOM WITH EQUAL AND UNLABORED RESPIRATIONS. NO APPARENT DISTRESS NOTED. NO NEW ISSUES.
--- NOTE | 2019-02-23 13:31 | NUR ---
PATIENT SEEN RESTING IN BED WITH NO COMPLAINTS OF PAIN OR DISCOMFORT. NO APPARENT DISTRESS NOTED. NO NEW ISSUES.
--- NOTE | 2019-02-23 15:35 | NUR ---
DR.MURUGAN HERNANDEZ FOR CONTINUATION OF BACTRIM DS.
[2019-02-23 16:40] VITALS: BP 122/77
--- NOTE | 2019-02-23 18:39 | NUR ---
PATIENT SEEN IN BED WITH N OCOMPLAINTS OF PAIN OR DISCOMFORT. NO APPARENT DISTRESS NOTED. IV TO SIRISHA PATENT AN DINFUSING NS AT 125ML/HR. WILL ENDORSE CARE TO FEDERICO BUITRAGO.
--- NOTE | 2019-02-23 19:30 | NUR ---
PT RECIEVED FROM DAY NURSE. PT RESTING IN BED AT THIS TIME. DENIES PAIN OR DISCOMFORT. A/OX4, CALM AND COOPERATIVE. MS, DENIES CP, NV, DIZZINESS, AND PALPATIONS. BREATHING E/U ON RA. DENIES SOB. ABD SOFT AND ROUND, DENIES PAIN TO PALPATION. AMBULATORY. IV TO SIRISHA INTACT AND INFUSING. BED AT LOWEST POSITION. CALL LIGHT WITHIN REACH. WILL CONTINUE TO MONITOR.
[2019-02-23 20:22] VITALS: BP 125/77
--- NOTE | 2019-02-24 00:29 | NUR ---
PT RESTING IN BED AT THIS TIME. COMPLAINING OF 5/10 HEADACHE. MEDICATED WITH PRN TYLENOL. WILL CONTINUE TO MONITOR.
[2019-02-24 05:41] VITALS: BP 129/73
--- NOTE | 2019-02-24 05:54 | NUR ---
PT RESTING COMFORTABLY AT THIS TIME. DENIES PAIN OR DISCOMFORT AT THIS TIME. BREATHING E/U ON RA. NO ACUTE CHANGES THIS SHIFT. BED AT LOWEST POSITION. CALL LIGHT WITHIN REACH. WILL ENDORSE TO DAY NURSE.
[2019-02-24 06:33] LABS: RED CELL DISTRIBUTION WIDTH 13.3 % (11.5-14.5)
[2019-02-24 06:58] LABS: PLATELET COUNT 74 x10^3mcL (130-400)
[2019-02-24 07:02] LABS: CALCIUM 7.6 mg/dL (8.5-10.1); CHLORIDE SERUM 109 mmol/L (98-107); CREATININE SERUM 1.1 mg/dL (0.7-1.3); GFR1 > 60 mL/min; GLUCOSE SERUM 97 mg/dL (74-106); MAGNESIUM 1.2 mg/dL (1.8-2.4); PHOSPHOROUS 4.2 mg/dL (2.5-4.9); SODIUM SERUM 144 mmol/L (136-145)
--- NOTE | 2019-02-24 07:15 | NUR ---
ASSUMED CARE OF PATIENT. SEEN RESTING THIS MORNING WITH EQUAL AND UNLABORED RESPIRATIONS. NO APPARENT DISTRESS NOTED. WILL CONTINUE TO MONITOR.
[2019-02-24 08:10] VITALS: BP 122/76
[2019-02-24 09:07] LABS: BAND NEUTROPHIL 0 % (0-10); BASOPHIL 0 % (0-2); MONOCYTE 2 % (0-7); SEGMENTED NEUTROPHILS 90 % (37-75)
[2019-02-24 09:08] LABS: rbc morphology (normal/abnorm) ABNORMAL (NORMAL)
[2019-02-24 09:09] LABS: PLATELET MORPHOLOGY PLATELETS DECREASED
[2019-02-24 09:14] LABS: IRON 93 ug/dL (65-170); TOTAL IRON BINDING CAPACITY 268 ug/dL (250-450)
--- NOTE | 2019-02-24 10:42 | NUR ---
PATIENT IN ROOM WATCHING TV. NO COMPLAINTS OF PAIN OR DISCOMFORT. NO APPARENT DISTRESS NOTED. NO NEW ISSUES.
--- NOTE | 2019-02-24 12:09 | NUR ---
COMPLAINING OF 5/10 HEADACHE, PRN TYLENOL PROVIDED.
--- NOTE | 2019-02-24 16:09 | NUR ---
PATIENT REPORTING SWELLING ON RIGHT SIDE OF FACE. LOCATED ANTERIORLY TO TRAGUS. SKIN APPEARS REDDENDED. NONTENDER AND HARD UPON PALPATION. DR.SARGYSIAN HERNANDEZ.
--- NOTE | 2019-02-24 17:20 | NUR ---
FUNGIZONE IV BAG FOUND IN FRIDGE WITH NO LIGHT PROTECTANT BAG COVER. PHARMACIST QUESTIONED ABOUT INTEGRITY OF MEDICATION. NEW FUNGIZONE TO BE MADE.
[2019-02-24 17:21] VITALS: BP 123/75
--- NOTE | 2019-02-24 17:29 | NUR ---
SWELLING ON RIGHT SIDE OF FACE REDUCED. SOFT AND NONTENDER UPON PALPATION. PATIENT STATES THE SWELLING INCREASES WHEN HE EATS AND DECREASES AFTERWARDS. NOTIFIED.
--- NOTE | 2019-02-24 18:43 | NUR ---
PATIENT RESTING IN ROOM WATCHING TV. NO COMPLAINTS OF PAIN OR DISCOMFORT. NO APPARENT DISTRESS NOTED. WILL ENDORSE CARE TO ONCOMING RN.
--- NOTE | 2019-02-24 19:30 | NUR ---
REC'D PT FROM DAY NURSE. PT RESTING IN BED WATCHING SHOW ON HIS LAPTOP. AAOX4, SPEECH CLEAR, FOLLOWS COMMANDS. MED SURG, NO TELE. DENIES CP, DIZZINESS, OR PALPITATIONS. DENIES RESP DISTRESS OR SOB. BREATHING EVEN/UNLABORED ON RA. NO EDEMA NOTED. ABD SOFT/FLAT/NONTENDER. DENIES N/V. VOIDING FREELY USING URINAL. GEN WEAKNESS, AMB WITH CANE AT BEDSIDE. IV TO SIRISHA PATENT AND INFUSING, SITE WNL. PT C/O ITCHINESS TO L BACK, SOME ERYTHEMA NOTED TO SITE WHERE PT WAS SCRATCHING BUT OTHERWISE UNREMARKABLE. LOTION APPLIED. CALL LIGHT WITHIN REACH, BED AT LOWEST POSITION. WILL CONTINUE TO MONITOR.
[2019-02-24 20:28] VITALS: BP 117/67
--- NOTE | 2019-02-24 20:52 | NUR ---
PT C/O [place]. TYLENOL GIVEN PER ORDER. WILL MONITOR FOR RELIEF.
--- NOTE | 2019-02-25 00:06 | NUR ---
PT RESTING IN BED WITH EYES CLOSED. NO SIGNS OF DISTRESS NOTED. BREATHING EVEN/UNLABORED ON RA. LAYING ON R SIDE. AWAKENS WITH VERBAL STIMULI. DUE MEDS GIVEN. NO COMPLAINTS AT THIS TIME. AT BEDSIDE ON RECLINER. CALL LIGHT WITHIN REACH, BED AT LOWEST POSITION. WILL CONTINUE TO MONITOR.
[2019-02-25 05:33] VITALS: BP 116/79
--- NOTE | 2019-02-25 05:39 | NUR ---
PT SLEEPING ON R SIDE. BREATHING EVEN/UNLABORED ON RA. AWAKENS WITH VERBAL STIMULI. DUE MEDS GIVEN. NO COMPLAINTS AT THIS TIME. NO SIGNIFICANT CHANGES DURING SHIFT. CALL LIGHT WITHIN REACH, BED AT LOWEST POSITION, AT BEDSIDE ON RECLINER. WILL ENDORSE TO DAY NURSE.
[2019-02-25 07:33] LABS: CALCIUM 7.9 mg/dL (8.5-10.1); CHLORIDE SERUM 108 mmol/L (98-107); CREATININE SERUM 1.1 mg/dL (0.7-1.3); GFR1 > 60 mL/min; GLUCOSE SERUM 93 mg/dL (74-106); MAGNESIUM 1.3 mg/dL (1.8-2.4); PHOSPHOROUS 3.8 mg/dL (2.5-4.9); POTASSIUM SERUM 3.1 mmol/L (3.5-5.1); SODIUM SERUM 143 mmol/L (136-145)
[2019-02-25 07:46] LABS: BASOPHIL % 0.4 % (0-2); RED CELL DISTRIBUTION WIDTH 13.5 % (11.5-14.5)
[2019-02-25 07:49] LABS: PLATELET COUNT 76 x10^3mcL (130-400)
[2019-02-25 08:02] VITALS: BP 112/73
--- NOTE | 2019-02-25 08:13 | NUR ---
AT 0710 - RECEIVED PATIENT FROM NIGHT NURSE. AWAKE, ALERT AND ORIENTED. AT BEDSIDE. NO COMPLAINTS. AT 0800 - PATIENT SLEEPING. RESPIRATIONS REGULAR.
--- NOTE | 2019-02-25 10:12 | NUR ---
PATIENT HAS EATEN BREAKFAST. ENCOURAGED TO AMBULATE. FAMILY WITH PATIENT.
--- NOTE | 2019-02-25 10:53 | NUR ---
SEEN BY DR SALGUERO DURING MORNING ROUNDS. MEDICAL TEAM DOCTORS AND CHARGE NURSE ASLO PRESENT. RECEIVED NEW ORDERS FOR 4 GRAM MG RIDER AND ADDITIONAL PO KCL FOR ELECTROLYTE REPLACEMENT. TODAY IS PATIENT'S LAST DOSE OF AMPHOTERICIN. ONCE COMPLETED PATIENT'S IV FLUID MAY BE DISCONTINUED. IV FLUID RATE DECREASED TO 100 ML/HR PER NEW ORDERS.
--- NOTE | 2019-02-25 13:30 | NUR ---
MG RIDER IN PROGRESS. CURRENTLY ON SECOND 2 G BAG. PATIENT AMBULATING. HAS REDUCED APPETITE.
--- NOTE | 2019-02-25 15:23 | NUR ---
MG QUINTERO COMPLETED. IV INFUSING NS ONLY AT 100 ML/HR.
[2019-02-25 16:53] VITALS: BP 113/65
--- NOTE | 2019-02-25 18:20 | NUR ---
RESTING QUIETLY. VSS AND WNL. AFEBRILE. LAST DOSE OF AMPHOTERICIN CURRENTLY IN PROGRESS.PATIENT HAS REDUCED APPETITE. ENCOURAGED TO TAKE NUTRITIONAL SUPPLIMENT. AMBULATED IN ROOM. PATIENT ENCOURAGED TO AMBULATE. VOIDING IN URINAL; GOOD URINE OUTPUT. WILL ENDORSE CARE TO NIGHT NURSE.
--- NOTE | 2019-02-25 19:30 | NUR ---
REC'D PT FROM DAY NURSE. PT SITTING UP IN BED AND EATING. AND FATHER AT BEDSIDE. PT AAOX4, SPEECH CLEAR, FOLLOWS COMMANDS. MED SURG, NO TELE. DENIES CP, DIZZINESS, OR PALPITATIONS. DENIES RESP DISTRESS OR SOB. BREATHING EVEN/UNLABORED ON RA. ABD SOFT/FLAT. DENIES ABD PAIN, TENDERNESS, OR N/V. NO EDEMA NOTED. SKIN INTACT. VOIDING FREELY. MILD GEN WEAKNESS. AMB WITH CANE AT BEDSIDE. IV TO SIRISHA PATENT AND INFUSING, SITE WNL. CALL LIGHT WITHIN REACH, BED AT LOWEST POSITION. WILL CONTINUE TO MONITOR.
[2019-02-25 20:13] VITALS: BP 121/78
--- NOTE | 2019-02-26 00:23 | NUR ---
PT RESTING IN BED WITH EYES CLOSED. NO SIGNS OF DISTRESS NOTED. BREATHING EVEN/UNLABORED ON RA. CALL LIGHT WITHIN REACH, BED AT LOWEST POSITION, AT BEDSIDE ON RECLINER. WILL CONTINUE TO MONITOR.
--- NOTE | 2019-02-26 02:49 | NUR ---
PT C/O PAIN TO L UPPER ARM IV SITE. IV INFILTRATED. ERYTHEMIC, WARM SKIN. IV D/C'D WITH CATHETER INTACT. MOTRIN GIVEN PER REQUEST AND ICE PACK PROVIDED. PT REFUSED NEW IV ACCESS. STATES HE WILL BE DISCHARGED IN AM. PT ONLY HAS NS @ 100 ML/HR. IV ANTIFUNGAL MEDICATION COMPLETED. DR. MEHTA MADE AWARE VIA [employer].
--- NOTE | 2019-02-26 05:47 | NUR ---
DR. WETZEL AT BEDSIDE TO SPEAK TO THE PT AND PT'S . PLAN FOR D/C TODAY. RESIDENT MADE AWARE PT'S IV INFILTRATED LAST NIGHT AND PT DOES NOT WANT IV ACCESS D/T D/C TODAY. RESIDENT STATED OK WITHOUT IV D/T COMPLETED IV ANTIFUNGAL MEDS. SUPERVISED GENITAL SKIN CHECK- SMALL DRY RED LESIONS SCATTERED OVER SCROTUM. PT DENIES ANY ITCHING. SIRISHA OLD IV SITE REMAINS SLIGHTLY ERYTHEMIC. NO SIGNIFICANT CHANGES DURING SHIFT. CALL LIGHT WITHIN REACH, BED AT LOWEST POSITION. WILL ENDORSE TO DAY NURSE.
[2019-02-26 06:28] LABS: CALCIUM 8.2 mg/dL (8.5-10.1); CARBON DIOXIDE 24.4 mmol/L (21-32); CHLORIDE SERUM 110 mmol/L (98-107); CREATININE SERUM 1.2 mg/dL (0.7-1.3); GFR1 > 60 mL/min; GLUCOSE SERUM 88 mg/dL (74-106); MAGNESIUM 1.8 mg/dL (1.8-2.4); POTASSIUM SERUM 3.4 mmol/L (3.5-5.1); SODIUM SERUM 144 mmol/L (136-145)
--- NOTE | 2019-02-26 07:30 | NUR ---
PT ENDORSE TO ME THIS MORNING. LAYING IN BED RESTING. FAMILY AT BEDSIDE. AA/O X4 /SPAINISH SPK. BREATHING EVEN AND UNLABORED ON RA, NO ACUTE RESP DISTRESS OR SOB NOTED. MEDSURG/ DENIES ANY CP OR PRESSURE. BOWEL SOUNDS ACTIVE IN ALL FOUR QUADS. LAST BM 02/23 FORMED. VOIDS FREELY/ URINAL AT BEDSIDE. AMB/ CANE AT BEDSIDE. NO IV ACCESS NOTED. DR. MEIER AWARE. CALL LIGHT IN REACH. BED IN LOW POSITION. WILL CONTINUE TO MONITOR.
[2019-02-26 08:24] VITALS: BP 110/74
[2019-02-26 08:51] VITALS: BP 110/74
[2019-02-26] MEDS ORDERED: BACDS PO (13:49)
[2019-02-26] MEDS ORDERED: DIF100 PO (13:50)
[2019-02-26] MEDS ORDERED: ZITHROMAX500 MG PO (13:52)
[2019-02-26 14:02] VITALS: BP 110/74
--- NOTE | 2019-02-26 14:15 | NUR ---
EXPLAINED DISCHARGE INSTRUCTIONS, NEW AND CONTINUED MEDS,FOLLOW UP APPT WITH [facility] FOR 03/15/19 AT 10AM / AND NEEDS TO MAKE APPT AT [facility] TO SCHEDULE APPT, BOTH PATIENT AND HIS AGREED. PT SIGNED ALL DISCHARGE DOCUMENTS. PT IS CLEAR ON ALL NEW MEDICATION INSTRUCTIONS.
--- NOTE | 2019-02-26 14:28 | NUR ---
TANISHA ALANIS WALKED PT AND HIS DOWN TO FRONT OF HOSPTIAL. PT BREATHING EVEN AND UNLABAORED ON RA, NO ACUTE RESP DISTRESS OR SOB NOTED. PROVIDED PT WITH EXTRA MASKS. DENIES ANY DISCOMFORT AND IS CLEAR ON ALL NEW MEDICATION AND FOLLOW UP APPOINTMENTS. DISCHARGE HOME/ WILL BE DRIVING HIM HOME.
== END 2019-02-26 14:28 | disposition home or self-care (01) | DRG 890 ==
LOC: ED 12:41 → DU 17:24 → MU 17:24
PROVIDERS: Emergency Medicine; General Practice; Internal Medicine; ADMIT Internal Medicine
PROC: 009U3ZX Drainage of Spinal Canal, Percutaneous Approach, Diagnostic (ICD-10-PCS; principal; 2019-02-08)
DX: B20 Human immunodeficiency virus [HIV] disease (principal); G93.41 Metabolic encephalopathy; B45.1 Cerebral cryptococcosis; N17.0 Acute kidney failure with tubular necrosis; E43 Unspecified severe protein-calorie malnutrition; D69.59 Other secondary thrombocytopenia; E83.42 Hypomagnesemia; E87.1 Hypo-osmolality and hyponatremia; G93.0 Cerebral cysts; A60.00 Herpesviral infection of urogenital system, unspecified; R33.9 Retention of urine, unspecified; R39.198 Other difficulties with micturition; E87.6 Hypokalemia
CPT/HCPCS: 62272; 86480; 86788; 86789; 87106; 87116; 87206; 87210; G0378; J0133; J0285; J0696; J1885; J2001; J3370; J3475; J3480; J3490; J7030; J7050